=== PATIENT | female | born 1950 | race Caucasian/White ===

== ENCOUNTER 2021-02-22 13:50 | Inpatient (IN) ==
[2021-02-22] MEDS ORDERED: ALUMINUM/MAGNES/SIMETH MAX STR 30 ML UDCUP PO PRN (13:52)
[2021-02-22] MEDS ORDERED: MAGNESIUM SULF RIDER 4 GM/100 ML PREMIX IV PRN (13:52)
[2021-02-22] MEDS ORDERED: PROMETHAZINE 25 MG TABLET PO PRN (13:52)
[2021-02-22] MEDS ORDERED: guaiFENesin/DM ER 600-30 MG TABLET PO PRN (13:52)
[2021-02-22] MEDS ORDERED: hydrALAZINE 20 MG/1 ML VIAL IV PRN (13:52)
[2021-02-22] MEDS ORDERED: DOCUSATE SODIUM 100 MG CAPSULE PO PRN (13:52)
[2021-02-22] MEDS ORDERED: ACETAMINOPHEN 325 MG TABLET PO PRN (13:52)
[2021-02-22] MEDS ORDERED: POTASSIUM CHLORIDE 20 MEQ TABLET PO PRN (13:52)
[2021-02-22] MEDS ORDERED: ALBUTEROL 2.5 MG/3 ML NEB RESP TX PRN (13:52)
[2021-02-22] MEDS ORDERED: diphenhydrAMINE CAP 25 MG CAPSULE PO PRN (13:52)
[2021-02-22] MEDS ORDERED: MAGNESIUM SULF RIDER 2 GM/50 ML PREMIX IV PRN (13:52)
[2021-02-22 15:04] LABS: Basophils % 0.4 % (0.0-0.8); Eosinophils # 0.1 10*3/uL (0.0-0.87); Hematocrit 48.3 VOL% (35.7-47.0); Immature Granulocytes % 0.4 %; Immature Granulocytes Absolute 0.04 #; Lymphocytes # 3.2 10*3/uL (1.4-4.0); Lymphocytes % 34.3 % (21.3-54.2); Mean Corpuscular HGB Conc 33.1 GM/DL (32-36); Mean Corpuscular Volume 93.2 FL (87-102); Mean Platelet Volume 10.4 FL (9.6-12.0); Monocytes % 8.5 % (1.7-12.7); Neutrophils % 55.4 % (38.7-73.9); Platelet Count 228 T/CUMM (130-400); Red Blood Count 5.18 MC/CUMM (3.8-5.5); Red Cell Distribution Width 13.2 % (9.3-17.3); White Blood Count 9.2 T/CUMM (4-12)
[2021-02-22 15:30] LABS: Albumin 3.4 G/DL (3.4-5.0); Bilirubin,Total 0.4 MG/DL (0.2-1.0); Calcium 9.6 MG/DL (8.5-10.1); Osmolality,Calculated 276.8 MOS/KG (273-304); Potassium 2.8 MMOL/L (3.5-5.1); Thyroid Stimulating Hormone 2.35 uIU/ml (0.358-3.74); Total Protein 7.2 G/DL (6.4-8.2); Troponin I 0.035 NG/ML (0.00-0.045)
[2021-02-22] MEDS ORDERED: MAGNESIUM SULF RIDER 2 GM/50 ML PREMIX IV ONE (16:52)
[2021-02-22] MEDS ORDERED: POTASSIUM CHLORIDE 20 MEQ TABLET PO ONE (16:52)
[2021-02-22] MEDS: DILTIAZEM INJ 100 MG in SODIUM CHLORIDE 0.9% 100 ML IV SCH (17:19)
[2021-02-22] MEDS: ENOXAPARIN 100 MG/ML SYRINGE SUBCUT SCH (17:20)
[2021-02-22 18:58] LABS: ABG Base Excess 6.3 MMOL/L (-2.5-2.5); ABG Oxygen Saturation 94.3 % (95-100); ABG PCO2 43.8 MM HG (35-48); ABG PH 7.459 (7.35-7.45); ABG PO2 70.9 MM HG (80-95); ABG TCO2 25.9 MMOL/L (23-27); Pt O2 Delivery Device Room Air
[2021-02-22] MEDS: SPIRONOLACTONE 25 MG TABLET PO SCH (20:25)
[2021-02-22] MEDS: POTASSIUM CHLORIDE 20 MEQ TABLET PO SCH (20:26)
[2021-02-22] MEDS: GABAPENTIN 600 MG TABLET PO SCH (20:26)
[2021-02-22] MEDS ORDERED: POTASSIUM CHLORIDE 10 MEQ TABLET PO SCH (21:00)
[2021-02-22] MEDS: MORPHINE 4 MG/1 ML VIAL IV PRN (21:14)
[2021-02-23] MEDS: ZALEPLON 5 MG CAPSULE PO PRN (00:48)
[2021-02-23 03:41] LABS: Basophils % 0.5 % (0.0-0.8); Eosinophils # 0.2 10*3/uL (0.0-0.87); Hematocrit 45.7 VOL% (35.7-47.0); Hemoglobin 15.2 GM/DL (12.0-16.0); Immature Granulocytes % 0.2 %; Immature Granulocytes Absolute 0.02 #; Lymphocytes # 3.8 10*3/uL (1.4-4.0); Lymphocytes % 44.8 % (21.3-54.2); Mean Corpuscular HGB Conc 33.3 GM/DL (32-36); Mean Corpuscular Volume 94.4 FL (87-102); Mean Platelet Volume 10.4 FL (9.6-12.0); Monocytes % 12.7 % (1.7-12.7); NRBC # 0.02 10*3/uL; Neutrophils % 39.8 % (38.7-73.9); Platelet Count 202 T/CUMM (130-400); Red Blood Count 4.84 MC/CUMM (3.8-5.5); Red Cell Distribution Width 13.3 % (9.3-17.3); White Blood Count 8.5 T/CUMM (4-12)
[2021-02-23 03:51] LABS: Calcium 8.8 MG/DL (8.5-10.1); Osmolality,Calculated 278.7 MOS/KG (273-304); Potassium 3.2 MMOL/L (3.5-5.1); Risk Ratio 6.64; VLDL CHOLESTEROL 93.4 MG/DL
[2021-02-23] MEDS: ENOXAPARIN 100 MG/ML SYRINGE SUBCUT SCH (05:46)
[2021-02-23] MEDS ORDERED: GLUCAGON 1 MG VIAL IM PRN (08:18)
[2021-02-23] MEDS ORDERED: DEXTROSE 50% 25 GM/50 ML VIAL IV PRN (08:18)
[2021-02-23] MEDS ORDERED: POTASSIUM CHLORIDE 20 MEQ TABLET PO ONE (08:21)
[2021-02-23] MEDS ORDERED: PANTOPRAZOLE 40 MG TABLET PO SCH (09:00)
[2021-02-23] MEDS ORDERED: AMINOPHYLLINE 250 MG in SODIUM CHLORIDE 0.9% 100 ML IV ONE (09:30)
[2021-02-23] MEDS: DILTIAZEM CD 240 MG CAPSULE PO SCH (09:30)
[2021-02-23] MEDS: POTASSIUM CHLORIDE 20 MEQ TABLET PO SCH ×2 (09:30→21:46)
[2021-02-23] MEDS: SPIRONOLACTONE 25 MG TABLET PO SCH ×2 (09:30→21:46)
[2021-02-23] MEDS ORDERED: ALBUTEROL/IPRATROPIUM 3 ML NEB RESP TX PRN (09:32)
[2021-02-23] MEDS: MAGNESIUM OXIDE 400 MG TABLET PO SCH ×2 (10:44→21:46)
[2021-02-23] MEDS: MONTELUKAST 10 MG TABLET PO SCH (10:44)
[2021-02-23] MEDS: methylPREDNISolone SOD SUC 40 MG/1 ML VIAL IV SCH ×2 (10:45→17:16)
[2021-02-23] MEDS: cefTRIAXone 1,000 MG in SODIUM CHLORIDE 0.9% 100 ML IV SCH (10:46)
[2021-02-23] MEDS: PANTOPRAZOLE 40 MG TABLET PO SCH ×2 (10:55→21:47)
[2021-02-23] MEDS: DORNASE ALFA 2.5 MG/2.5 ML VIAL RESP TX SCH ×2 (11:11→19:37)
[2021-02-23] MEDS: INSULIN REGULAR 100 UNIT/ML SUBCUT SCH ×3 (12:10→21:45)
[2021-02-23] MEDS: ALBUTEROL/IPRATROPIUM 3 ML NEB RESP TX SCH ×2 (13:40→19:37)
[2021-02-23] MEDS: AMINOPHYLLINE 500 MG in SODIUM CHLORIDE 0.9% 480 ML IV SCH (15:08)
[2021-02-23] MEDS: DILTIAZEM INJ 100 MG in SODIUM CHLORIDE 0.9% 100 ML IV SCH (16:20)
[2021-02-23] MEDS: metFORMIN 500 MG TABLET PO SCH (17:16)
[2021-02-23] MEDS: MORPHINE 4 MG/1 ML VIAL IV PRN (20:18)
[2021-02-23] MEDS: ONDANSETRON 4 MG/2 ML VIAL IV PRN (20:18)
[2021-02-23] MEDS: ROSUVASTATIN 20 MG TABLET PO SCH (21:45)
[2021-02-23] MEDS: GABAPENTIN 600 MG TABLET PO SCH (21:46)
[2021-02-24] MEDS: ZALEPLON 5 MG CAPSULE PO PRN ×2 (00:04→22:01)
[2021-02-24] MEDS: ALBUTEROL/IPRATROPIUM 3 ML NEB RESP TX SCH ×4 (00:33→19:14)
[2021-02-24] MEDS: methylPREDNISolone SOD SUC 40 MG/1 ML VIAL IV SCH ×3 (01:10→16:38)
[2021-02-24] MEDS: MORPHINE 4 MG/1 ML VIAL IV PRN ×2 (01:15→21:22)
[2021-02-24 06:12] LABS: Basophils % 0.1 % (0.0-0.8); Hematocrit 43.5 VOL% (35.7-47.0); Hemoglobin 14.3 GM/DL (12.0-16.0); Immature Granulocytes % 0.6 %; Immature Granulocytes Absolute 0.06 #; Lymphocytes # 1.6 10*3/uL (1.4-4.0); Lymphocytes % 15.2 % (21.3-54.2); Mean Corpuscular HGB Conc 32.9 GM/DL (32-36); Mean Corpuscular Volume 94.4 FL (87-102); Mean Platelet Volume 11.1 FL (9.6-12.0); Monocytes % 3.8 % (1.7-12.7); Neutrophils % 80.3 % (38.7-73.9); Platelet Count 211 T/CUMM (130-400); Red Blood Count 4.61 MC/CUMM (3.8-5.5); Red Cell Distribution Width 13.3 % (9.3-17.3); White Blood Count 10.5 T/CUMM (4-12)
[2021-02-24 06:20] LABS: Calcium 8.6 MG/DL (8.5-10.1); Osmolality,Calculated 282.7 MOS/KG (273-304); Potassium 3.2 MMOL/L (3.5-5.1)
[2021-02-24] MEDS: ENOXAPARIN 40 MG/0.4 ML SYRINGE SUBCUT SCH (06:30)
[2021-02-24] MEDS: DORNASE ALFA 2.5 MG/2.5 ML VIAL RESP TX SCH ×2 (07:58→19:20)
[2021-02-24] MEDS: INSULIN REGULAR 100 UNIT/ML SUBCUT SCH ×4 (08:58→21:21)
[2021-02-24] MEDS: cefTRIAXone 1,000 MG in SODIUM CHLORIDE 0.9% 100 ML IV SCH ×2 (08:59→09:49)
[2021-02-24] MEDS: POTASSIUM CHLORIDE 20 MEQ TABLET PO SCH ×2 (08:59→21:20)
[2021-02-24] MEDS: MONTELUKAST 10 MG TABLET PO SCH (09:00)
[2021-02-24] MEDS: MAGNESIUM OXIDE 400 MG TABLET PO SCH ×2 (09:00→21:19)
[2021-02-24] MEDS: DILTIAZEM CD 240 MG CAPSULE PO SCH (09:00)
[2021-02-24] MEDS: PANTOPRAZOLE 40 MG TABLET PO SCH ×2 (09:01→21:19)
[2021-02-24] MEDS: SPIRONOLACTONE 25 MG TABLET PO SCH ×2 (09:01→21:19)
[2021-02-24] MEDS: METOPROLOL SUCCINATE XL 25 MG TABLET PO SCH (13:04)
[2021-02-24] MEDS: metFORMIN 500 MG TABLET PO SCH (16:39)
[2021-02-24] MEDS: DILTIAZEM INJ 100 MG in SODIUM CHLORIDE 0.9% 100 ML IV SCH (16:54)
[2021-02-24] MEDS: ONDANSETRON 4 MG/2 ML VIAL IV PRN (19:43)
[2021-02-24] MEDS: ROSUVASTATIN 20 MG TABLET PO SCH (21:19)
[2021-02-24] MEDS: GABAPENTIN 600 MG TABLET PO SCH (21:20)
[2021-02-24] MEDS: AMINOPHYLLINE 500 MG in SODIUM CHLORIDE 0.9% 480 ML IV SCH (21:51)
[2021-02-25] MEDS: ALBUTEROL/IPRATROPIUM 3 ML NEB RESP TX SCH ×4 (00:38→20:02)
[2021-02-25] MEDS: methylPREDNISolone SOD SUC 40 MG/1 ML VIAL IV SCH ×3 (02:16→17:17)
[2021-02-25] MEDS: MORPHINE 4 MG/1 ML VIAL IV PRN ×2 (03:16→21:17)
[2021-02-25 05:56] LABS: Basophils % 0.1 % (0.0-0.8); Hematocrit 42.3 VOL% (35.7-47.0); Immature Granulocytes % 0.9 %; Immature Granulocytes Absolute 0.14 #; Lymphocytes # 1.5 10*3/uL (1.4-4.0); Lymphocytes % 9.3 % (21.3-54.2); Mean Corpuscular HGB Conc 33.1 GM/DL (32-36); Mean Corpuscular Volume 95.1 FL (87-102); Mean Platelet Volume 10.8 FL (9.6-12.0); Monocytes % 4.8 % (1.7-12.7); Neutrophils % 84.9 % (38.7-73.9); Platelet Count 220 T/CUMM (130-400); Red Blood Count 4.45 MC/CUMM (3.8-5.5); Red Cell Distribution Width 13.7 % (9.3-17.3); White Blood Count 16.3 T/CUMM (4-12)
[2021-02-25 06:11] LABS: Calcium 8.6 MG/DL (8.5-10.1); Osmolality,Calculated 283.7 MOS/KG (273-304)
[2021-02-25] MEDS: ENOXAPARIN 40 MG/0.4 ML SYRINGE SUBCUT SCH (06:15)
[2021-02-25] MEDS: ONDANSETRON 4 MG/2 ML VIAL IV PRN ×3 (06:15→19:29)
[2021-02-25] MEDS: DORNASE ALFA 2.5 MG/2.5 ML VIAL RESP TX SCH ×2 (07:25→20:09)
[2021-02-25] MEDS: INSULIN REGULAR 100 UNIT/ML SUBCUT SCH ×4 (09:51→22:23)
[2021-02-25] MEDS: MONTELUKAST 10 MG TABLET PO SCH (09:52)
[2021-02-25] MEDS: DILTIAZEM CD 240 MG CAPSULE PO SCH (09:52)
[2021-02-25] MEDS: MAGNESIUM OXIDE 400 MG TABLET PO SCH ×2 (09:52→21:16)
[2021-02-25] MEDS: METOPROLOL SUCCINATE XL 25 MG TABLET PO SCH (09:52)
[2021-02-25] MEDS: SPIRONOLACTONE 25 MG TABLET PO SCH ×2 (09:53→21:16)
[2021-02-25] MEDS: POTASSIUM CHLORIDE 20 MEQ TABLET PO SCH ×2 (09:53→21:16)
[2021-02-25] MEDS: PANTOPRAZOLE 40 MG TABLET PO SCH ×2 (09:53→21:16)
[2021-02-25] MEDS: cefTRIAXone 1,000 MG in SODIUM CHLORIDE 0.9% 100 ML IV SCH (09:55)
[2021-02-25] MEDS: AMINOPHYLLINE 500 MG in SODIUM CHLORIDE 0.9% 480 ML IV SCH (14:22)
[2021-02-25] MEDS: metFORMIN 500 MG TABLET PO SCH (17:15)
[2021-02-25] MEDS: ROSUVASTATIN 20 MG TABLET PO SCH (21:15)
[2021-02-25] MEDS: GABAPENTIN 600 MG TABLET PO SCH (21:16)
[2021-02-26] MEDS: methylPREDNISolone SOD SUC 40 MG/1 ML VIAL IV SCH ×3 (00:57→20:02)
[2021-02-26] MEDS: ALBUTEROL/IPRATROPIUM 3 ML NEB RESP TX SCH ×4 (02:08→19:30)
[2021-02-26] MEDS: MORPHINE 4 MG/1 ML VIAL IV PRN ×3 (02:18→20:02)
[2021-02-26 05:56] LABS: Basophils % 0.2 % (0.0-0.8); Hematocrit 41.2 VOL% (35.7-47.0); Hemoglobin 13.1 GM/DL (12.0-16.0); Immature Granulocytes % 1.9 %; Immature Granulocytes Absolute 0.23 #; Lymphocytes # 1.2 10*3/uL (1.4-4.0); Lymphocytes % 9.8 % (21.3-54.2); Mean Corpuscular HGB Conc 31.8 GM/DL (32-36); Mean Corpuscular Volume 96.5 FL (87-102); Mean Platelet Volume 10.8 FL (9.6-12.0); Monocytes % 6.2 % (1.7-12.7); Neutrophils % 81.9 % (38.7-73.9); Platelet Count 192 T/CUMM (130-400); Red Blood Count 4.27 MC/CUMM (3.8-5.5); Red Cell Distribution Width 13.8 % (9.3-17.3); White Blood Count 12.3 T/CUMM (4-12)
[2021-02-26 06:15] LABS: Osmolality,Calculated 284.7 MOS/KG (273-304); Potassium 4.5 MMOL/L (3.5-5.1)
[2021-02-26] MEDS ORDERED: FUROSEMIDE 40 MG/4 ML VIAL IV ONE ×2 (06:15→16:51)
[2021-02-26] MEDS ORDERED: diphenhydrAMINE CAP 50 MG CAPSULE PO ONE (06:47)
[2021-02-26] MEDS ORDERED: DIAZEPAM 5 MG TABLET PO ONE (06:47)
[2021-02-26] MEDS: DORNASE ALFA 2.5 MG/2.5 ML VIAL RESP TX SCH ×2 (07:47→19:40)
[2021-02-26] MEDS: ONDANSETRON 4 MG/2 ML VIAL IV PRN ×2 (08:23→21:02)
[2021-02-26] MEDS: MAGNESIUM OXIDE 400 MG TABLET PO SCH ×3 (09:43→21:01)
[2021-02-26] MEDS: POTASSIUM CHLORIDE 20 MEQ TABLET PO SCH ×3 (09:43→21:01)
[2021-02-26] MEDS: SPIRONOLACTONE 25 MG TABLET PO SCH ×2 (09:43→21:01)
[2021-02-26] MEDS: METOPROLOL SUCCINATE XL 25 MG TABLET PO SCH (09:43)
[2021-02-26] MEDS: PANTOPRAZOLE 40 MG TABLET PO SCH ×3 (09:43→21:02)
[2021-02-26] MEDS: MONTELUKAST 10 MG TABLET PO SCH ×2 (09:43→10:03)
[2021-02-26] MEDS: DILTIAZEM CD 240 MG CAPSULE PO SCH (09:43)
[2021-02-26] MEDS: INSULIN REGULAR 100 UNIT/ML SUBCUT SCH ×4 (09:44→22:45)
[2021-02-26] MEDS: cefTRIAXone 1,000 MG in SODIUM CHLORIDE 0.9% 100 ML IV SCH (10:51)
[2021-02-26] MEDS ORDERED: DIAZEPAM 5 MG TABLET ONE (15:10)
[2021-02-26] MEDS ORDERED: HEPARIN/NACL 0.9% 2 UNITS/ML 2,000 UNIT/1,000 ML BAG IV ONE (15:57)
[2021-02-26] MEDS ORDERED: LIDOCAINE 1% 20 ML VIAL ONE (15:57)
[2021-02-26] MEDS ORDERED: MIDAZOLAM 2 MG/2 ML VIAL ONE (16:14)
[2021-02-26] MEDS ORDERED: fentaNYL 100 MCG/2 ML VIAL ONE (16:14)
[2021-02-26] MEDS ORDERED: diphenhydrAMINE 50 MG/1 ML VIAL ONE (16:22)
[2021-02-26] MEDS ORDERED: NITROGLYCERIN DRIP 50 MG/250 ML BOTTLE IV ONE (16:33)
[2021-02-26] MEDS ORDERED: DEXTROSE 50% 25 GM/50 ML VIAL IV PRN (16:48)
[2021-02-26] MEDS ORDERED: GLUCAGON 1 MG VIAL IM PRN (16:48)
[2021-02-26] MEDS: GABAPENTIN 600 MG TABLET PO SCH (21:01)
[2021-02-26] MEDS: ROSUVASTATIN 20 MG TABLET PO SCH (21:01)
[2021-02-27] MEDS: methylPREDNISolone SOD SUC 40 MG/1 ML VIAL IV SCH ×4 (01:22→21:57)
[2021-02-27] MEDS: ALBUTEROL/IPRATROPIUM 3 ML NEB RESP TX SCH ×4 (01:43→19:20)
[2021-02-27] MEDS: ZALEPLON 5 MG CAPSULE PO PRN (02:19)
[2021-02-27] MEDS: ONDANSETRON 4 MG/2 ML VIAL IV PRN ×4 (02:20→21:54)
[2021-02-27 06:07] LABS: Basophils % 0.2 % (0.0-0.8); Hematocrit 41.3 VOL% (35.7-47.0); Hemoglobin 13.9 GM/DL (12.0-16.0); Immature Granulocytes % 1.8 %; Immature Granulocytes Absolute 0.19 #; Lymphocytes # 0.9 10*3/uL (1.4-4.0); Lymphocytes % 8.5 % (21.3-54.2); Mean Corpuscular HGB Conc 33.7 GM/DL (32-36); Mean Corpuscular Volume 93.4 FL (87-102); Mean Platelet Volume 11.2 FL (9.6-12.0); Monocytes % 7.2 % (1.7-12.7); NRBC # 0.02 10*3/uL; Neutrophils % 82.3 % (38.7-73.9); Platelet Count 199 T/CUMM (130-400); Red Blood Count 4.42 MC/CUMM (3.8-5.5); Red Cell Distribution Width 13.7 % (9.3-17.3); White Blood Count 10.8 T/CUMM (4-12)
[2021-02-27 06:44] LABS: Calcium 8.1 MG/DL (8.5-10.1)
[2021-02-27] MEDS: DORNASE ALFA 2.5 MG/2.5 ML VIAL RESP TX SCH ×2 (07:10→19:20)
[2021-02-27] MEDS: MONTELUKAST 10 MG TABLET PO SCH (08:41)
[2021-02-27] MEDS: SPIRONOLACTONE 25 MG TABLET PO SCH ×2 (08:41→21:54)
[2021-02-27] MEDS: POTASSIUM CHLORIDE 20 MEQ TABLET PO SCH ×2 (08:41→21:53)
[2021-02-27] MEDS: DILTIAZEM CD 240 MG CAPSULE PO SCH (08:41)
[2021-02-27] MEDS: PANTOPRAZOLE 40 MG TABLET PO SCH ×2 (08:41→21:54)
[2021-02-27] MEDS: MAGNESIUM OXIDE 400 MG TABLET PO SCH ×2 (08:41→21:53)
[2021-02-27] MEDS: METOPROLOL SUCCINATE XL 25 MG TABLET PO SCH (08:41)
[2021-02-27] MEDS: INSULIN REGULAR 100 UNIT/ML SUBCUT SCH ×4 (08:42→22:34)
[2021-02-27] MEDS: FUROSEMIDE 40 MG/4 ML VIAL IV SCH ×2 (08:43→17:41)
[2021-02-27] MEDS: MORPHINE 4 MG/1 ML VIAL IV PRN (08:51)
[2021-02-27] MEDS: THEOPHYLLINE ER (24 HR) 200 MG CAPSULE PO SCH (11:23)
[2021-02-27] MEDS: cefTRIAXone 1,000 MG in SODIUM CHLORIDE 0.9% 100 ML IV SCH (11:24)
[2021-02-27] MEDS: AMINOPHYLLINE 500 MG in SODIUM CHLORIDE 0.9% 480 ML IV SCH (13:09)
[2021-02-27] MEDS ORDERED: METOPROLOL SUCCINATE XL 25 MG TABLET PO SCH (14:01)
[2021-02-27] MEDS: ROSUVASTATIN 20 MG TABLET PO SCH (21:53)
[2021-02-27] MEDS: GABAPENTIN 600 MG TABLET PO SCH (21:54)
[2021-02-27] MEDS: SACUBITRIL/VALSARTAN 49-51 MG TABLET PO SCH (22:33)
[2021-02-28] MEDS: ALBUTEROL/IPRATROPIUM 3 ML NEB RESP TX SCH ×4 (01:03→19:09)
[2021-02-28] MEDS: ZALEPLON 5 MG CAPSULE PO PRN (01:56)
[2021-02-28 05:24] LABS: Basophils % 0.2 % (0.0-0.8); Hematocrit 44.6 VOL% (35.7-47.0); Immature Granulocytes Absolute 0.26 #; Lymphocytes # 1.2 10*3/uL (1.4-4.0); Lymphocytes % 8.7 % (21.3-54.2); Mean Corpuscular HGB Conc 33.6 GM/DL (32-36); Mean Corpuscular Volume 94.5 FL (87-102); Mean Platelet Volume 10.9 FL (9.6-12.0); Monocytes % 7.7 % (1.7-12.7); NRBC # 0.06 10*3/uL; Neutrophils % 81.4 % (38.7-73.9); Platelet Count 224 T/CUMM (130-400); Red Blood Count 4.72 MC/CUMM (3.8-5.5); Red Cell Distribution Width 13.9 % (9.3-17.3); White Blood Count 13.3 T/CUMM (4-12)
[2021-02-28 05:50] LABS: Calcium 8.2 MG/DL (8.5-10.1); Osmolality,Calculated 284.8 MOS/KG (273-304); Potassium 4.5 MMOL/L (3.5-5.1)
[2021-02-28] MEDS: DORNASE ALFA 2.5 MG/2.5 ML VIAL RESP TX SCH ×2 (07:23→19:09)
[2021-02-28] MEDS ORDERED: MAGNESIUM HYDROXIDE SUSP 30 ML UDCUP PO ONE (08:37)
[2021-02-28] MEDS: PANTOPRAZOLE 40 MG TABLET PO SCH ×2 (09:10→21:40)
[2021-02-28] MEDS: SPIRONOLACTONE 25 MG TABLET PO SCH ×2 (09:10→21:40)
[2021-02-28] MEDS: SACUBITRIL/VALSARTAN 49-51 MG TABLET PO SCH ×2 (09:10→21:40)
[2021-02-28] MEDS: MONTELUKAST 10 MG TABLET PO SCH (09:10)
[2021-02-28] MEDS: THEOPHYLLINE ER (24 HR) 200 MG CAPSULE PO SCH (09:10)
[2021-02-28] MEDS: POTASSIUM CHLORIDE 20 MEQ TABLET PO SCH ×2 (09:11→21:39)
[2021-02-28] MEDS: methylPREDNISolone SOD SUC 40 MG/1 ML VIAL IV SCH (09:12)
[2021-02-28] MEDS: INSULIN REGULAR 100 UNIT/ML SUBCUT SCH ×4 (09:12→21:42)
[2021-02-28] MEDS: cefTRIAXone 1,000 MG in SODIUM CHLORIDE 0.9% 100 ML IV SCH (09:12)
[2021-02-28] MEDS: FUROSEMIDE 40 MG/4 ML VIAL IV SCH ×2 (09:13→16:56)
[2021-02-28] MEDS: METOPROLOL SUCCINATE XL 50 MG TABLET PO SCH (09:20)
[2021-02-28] MEDS: MAGNESIUM OXIDE 400 MG TABLET PO SCH ×2 (10:01→21:40)
[2021-02-28] MEDS: ENOXAPARIN 40 MG/0.4 ML SYRINGE SUBCUT SCH (11:27)
[2021-02-28] MEDS: LEVOFLOXACIN 500 MG TABLET PO SCH (11:27)
[2021-02-28] MEDS: ROSUVASTATIN 20 MG TABLET PO SCH (21:38)
[2021-02-28] MEDS: GABAPENTIN 600 MG TABLET PO SCH (21:39)
[2021-03-01] MEDS: ALBUTEROL/IPRATROPIUM 3 ML NEB RESP TX SCH ×4 (00:24→19:45)
[2021-03-01] MEDS: ONDANSETRON 4 MG/2 ML VIAL IV PRN ×3 (00:42→20:45)
[2021-03-01 05:39] LABS: Calcium 8.6 MG/DL (8.5-10.1); Osmolality,Calculated 281.8 MOS/KG (273-304); Potassium 4.5 MMOL/L (3.5-5.1)
[2021-03-01] MEDS: DORNASE ALFA 2.5 MG/2.5 ML VIAL RESP TX SCH ×2 (07:41→19:53)
[2021-03-01] MEDS: LEVOFLOXACIN 500 MG TABLET PO SCH (08:03)
[2021-03-01] MEDS: THEOPHYLLINE ER (24 HR) 200 MG CAPSULE PO SCH (08:03)
[2021-03-01] MEDS: SACUBITRIL/VALSARTAN 49-51 MG TABLET PO SCH ×2 (08:03→22:16)
[2021-03-01] MEDS: METOPROLOL SUCCINATE XL 50 MG TABLET PO SCH (08:03)
[2021-03-01] MEDS: predniSONE 10 MG TABLET PO SCH (08:03)
[2021-03-01] MEDS: FUROSEMIDE 40 MG/4 ML VIAL IV SCH ×2 (08:04→16:34)
[2021-03-01] MEDS: POTASSIUM CHLORIDE 20 MEQ TABLET PO SCH ×2 (08:04→22:14)
[2021-03-01] MEDS: MAGNESIUM OXIDE 400 MG TABLET PO SCH ×2 (08:04→22:15)
[2021-03-01] MEDS: MONTELUKAST 10 MG TABLET PO SCH (08:04)
[2021-03-01] MEDS: SPIRONOLACTONE 25 MG TABLET PO SCH ×2 (08:04→22:16)
[2021-03-01] MEDS: PANTOPRAZOLE 40 MG TABLET PO SCH ×2 (08:04→22:15)
[2021-03-01] MEDS: INSULIN REGULAR 100 UNIT/ML SUBCUT SCH ×4 (08:13→22:13)
[2021-03-01] MEDS: ENOXAPARIN 40 MG/0.4 ML SYRINGE SUBCUT SCH (10:53)
[2021-03-01] MEDS: ROSUVASTATIN 20 MG TABLET PO SCH (22:15)
[2021-03-01] MEDS: GABAPENTIN 600 MG TABLET PO SCH (22:15)
[2021-03-02] MEDS: ALBUTEROL/IPRATROPIUM 3 ML NEB RESP TX SCH ×4 (00:27→19:28)
[2021-03-02] MEDS: ONDANSETRON 4 MG/2 ML VIAL IV PRN ×4 (01:18→21:37)
[2021-03-02 05:39] LABS: Calcium 9.1 MG/DL (8.5-10.1); Potassium 4.9 MMOL/L (3.5-5.1)
[2021-03-02 06:43] LABS: ABG Oxygen Saturation 95.5 % (95-100); ABG PCO2 40.3 MM HG (35-48); ABG TCO2 22.4 MMOL/L (23-27)
[2021-03-02 06:52] LABS: Basophils % 0.1 % (0.0-0.8); Eosinophils # 0.1 10*3/uL (0.0-0.87); Eosinophils % 0.6 % (0.00-10.9); Hematocrit 52.5 VOL% (35.7-47.0); Hemoglobin 16.7 GM/DL (12.0-16.0); Immature Granulocytes % 1.4 %; Lymphocytes # 3.5 10*3/uL (1.4-4.0); Lymphocytes % 25.3 % (21.3-54.2); Mean Corpuscular HGB Conc 31.8 GM/DL (32-36); Mean Corpuscular Volume 95.5 FL (87-102); Mean Platelet Volume 10.4 FL (9.6-12.0); Monocytes % 8.1 % (1.7-12.7); NRBC # 0.02 10*3/uL; Neutrophils % 64.5 % (38.7-73.9); Platelet Count 232 T/CUMM (130-400); Red Cell Distribution Width 14.1 % (9.3-17.3); White Blood Count 13.9 T/CUMM (4-12)
[2021-03-02] MEDS: DORNASE ALFA 2.5 MG/2.5 ML VIAL RESP TX SCH ×2 (07:17→19:28)
[2021-03-02] MEDS: INSULIN REGULAR 100 UNIT/ML SUBCUT SCH ×4 (08:23→21:47)
[2021-03-02] MEDS: PANTOPRAZOLE 40 MG TABLET PO SCH ×2 (08:41→21:37)
[2021-03-02] MEDS: MONTELUKAST 10 MG TABLET PO SCH (08:41)
[2021-03-02] MEDS: predniSONE 10 MG TABLET PO SCH (08:41)
[2021-03-02] MEDS: SACUBITRIL/VALSARTAN 49-51 MG TABLET PO SCH ×2 (08:41→21:36)
[2021-03-02] MEDS: SPIRONOLACTONE 25 MG TABLET PO SCH ×2 (08:41→21:37)
[2021-03-02] MEDS: THEOPHYLLINE ER (24 HR) 200 MG CAPSULE PO SCH (08:41)
[2021-03-02] MEDS: METOPROLOL SUCCINATE XL 50 MG TABLET PO SCH (08:41)
[2021-03-02] MEDS: POTASSIUM CHLORIDE 20 MEQ TABLET PO SCH ×2 (08:41→21:36)
[2021-03-02] MEDS: FUROSEMIDE 40 MG TABLET PO SCH ×2 (08:42→15:30)
[2021-03-02] MEDS: LEVOFLOXACIN 500 MG TABLET PO SCH (08:42)
[2021-03-02] MEDS: MAGNESIUM OXIDE 400 MG TABLET PO SCH ×2 (08:44→21:36)
[2021-03-02] MEDS: ENOXAPARIN 40 MG/0.4 ML SYRINGE SUBCUT SCH (10:01)
[2021-03-02] MEDS: ROSUVASTATIN 20 MG TABLET PO SCH (21:36)
[2021-03-02] MEDS: GABAPENTIN 600 MG TABLET PO SCH (21:37)
[2021-03-03] MEDS: ALBUTEROL/IPRATROPIUM 3 ML NEB RESP TX SCH ×2 (00:10→07:30)
[2021-03-03] MEDS: ZALEPLON 5 MG CAPSULE PO PRN (00:49)
[2021-03-03 05:39] LABS: Basophils # 0.1 10*3/uL (0.0-0.2); Basophils % 0.4 % (0.0-0.8); Eosinophils # 0.1 10*3/uL (0.0-0.87); Eosinophils % 0.6 % (0.00-10.9); Hemoglobin 16.9 GM/DL (12.0-16.0); Immature Granulocytes % 1.2 %; Immature Granulocytes Absolute 0.15 #; Lymphocytes # 3.1 10*3/uL (1.4-4.0); Lymphocytes % 24.5 % (21.3-54.2); Mean Corpuscular HGB Conc 32.5 GM/DL (32-36); Mean Corpuscular Volume 95.8 FL (87-102); Mean Platelet Volume 10.7 FL (9.6-12.0); Monocytes % 8.6 % (1.7-12.7); Neutrophils % 64.7 % (38.7-73.9); Platelet Count 223 T/CUMM (130-400); Red Blood Count 5.43 MC/CUMM (3.8-5.5); White Blood Count 12.5 T/CUMM (4-12)
[2021-03-03 05:58] LABS: Osmolality,Calculated 270.5 MOS/KG (273-304); Potassium 4.9 MMOL/L (3.5-5.1)
[2021-03-03] MEDS: DORNASE ALFA 2.5 MG/2.5 ML VIAL RESP TX SCH (07:30)
[2021-03-03 07:33] VITALS: BP 131/75
[2021-03-03] MEDS: INSULIN REGULAR 100 UNIT/ML SUBCUT SCH (08:04)
[2021-03-03] MEDS: predniSONE 10 MG TABLET PO SCH (08:47)
[2021-03-03] MEDS: SPIRONOLACTONE 25 MG TABLET PO SCH (08:47)
[2021-03-03] MEDS: PANTOPRAZOLE 40 MG TABLET PO SCH (08:48)
[2021-03-03] MEDS: METOPROLOL SUCCINATE XL 50 MG TABLET PO SCH (08:48)
[2021-03-03] MEDS: MONTELUKAST 10 MG TABLET PO SCH (08:48)
[2021-03-03] MEDS: SACUBITRIL/VALSARTAN 49-51 MG TABLET PO SCH (08:48)
[2021-03-03] MEDS: FUROSEMIDE 40 MG TABLET PO SCH (08:48)
[2021-03-03] MEDS: POTASSIUM CHLORIDE 20 MEQ TABLET PO SCH (08:48)
[2021-03-03] MEDS: LEVOFLOXACIN 500 MG TABLET PO SCH (08:49)
[2021-03-03] MEDS: THEOPHYLLINE ER (24 HR) 200 MG CAPSULE PO SCH (08:49)
[2021-03-03] MEDS: ONDANSETRON 4 MG/2 ML VIAL IV PRN (08:50)
[2021-03-03] MEDS: MAGNESIUM OXIDE 400 MG TABLET PO SCH (08:54)
[2021-03-03] MEDS: ENOXAPARIN 40 MG/0.4 ML SYRINGE SUBCUT SCH (10:26)
== END 2021-03-03 11:18 | disposition home or self-care (01) | DRG 190 ==
LOC: N.TELES 14:14
PROVIDERS: ADMIT Internal Medicine Cardiovascular Disease; ATTEND Internal Medicine Cardiovascular Disease

== ENCOUNTER 2021-03-08 08:01 | Inpatient (IN) ==
[2021-03-08] MEDS ORDERED: SODIUM CHLORIDE 0.9% 250 ML IV STA ×2 (08:35→09:22)
[2021-03-08 08:39] LABS: Basophils % 0.1 % (0.0-0.8); Eosinophils % 0.1 % (0.00-10.9); Hematocrit 45.2 VOL% (35.7-47.0); Hemoglobin 15.3 GM/DL (12.0-16.0); Immature Granulocytes % 0.6 %; Immature Granulocytes Absolute 0.09 #; Lymphocytes # 3.7 10*3/uL (1.4-4.0); Lymphocytes % 24.4 % (21.3-54.2); Mean Corpuscular HGB Conc 33.8 GM/DL (32-36); Mean Corpuscular Volume 91.1 FL (87-102); Monocytes % 10.8 % (1.7-12.7); Platelet Count 231 T/CUMM (130-400); Red Blood Count 4.96 MC/CUMM (3.8-5.5); White Blood Count 15.3 T/CUMM (4-12)
[2021-03-08 08:49] LABS: INR 0.9; PT Patient Result 10.5 SECS (10.5-12.0); Partial Thromboplastin Time < 20.0 SECS (23.9-33.8)
[2021-03-08 08:59] LABS: Alanine Aminotransferase 68 U/L (13-56); Albumin 2.7 G/DL (3.4-5.0); Alkaline Phosphatase 114 U/L (45-117); Aspartate Amino Transferase 36 U/L (0-37); Bilirubin,Total < 0.39 MG/DL (0.2-1.0); Blood Urea Nitrogen 75 MG/DL (7-18); Carbon Dioxide 26 MMOL/L (21-32); Estimated Glom Filtration Rate 15 ML/MIN; Glucose 132 MG/DL (74-106); Osmolality,Calculated 291.2 MOS/KG (273-304); Potassium 3.8 MMOL/L (3.5-5.1); Sodium 134 MMOL/L (136-145); Total Protein 6.6 G/DL (6.4-8.2)
[2021-03-08] MEDS ORDERED: GLUCAGON 1 MG VIAL IM PRN (10:21)
[2021-03-08] MEDS ORDERED: DEXTROSE 50% 25 GM/50 ML VIAL IV PRN (10:21)
[2021-03-08] MEDS: SODIUM CHLORIDE 0.9% 1,000 ML IV SCH (10:35)
[2021-03-08 11:25] LABS: Amorphous Crystals,Urine Few /HPF (Few); Bilirubin,Urine Negative (Negative); Blood, Urine Small mg/dL (Negative); Glucose,Urine (UA) Negative (Negative); Hyaline Casts,Urine 4 /LPF (0-3); Ketones,Urine Negative (Negative); Mucus,Urine Occasional /LPF (Occasional); Nitrite,Urine Negative (Negative); Protein,Urine 30 MG/DL; RBC,Urine 3 /HPF (0-4); Squamous Epithelial Cell,Urine Occasional /HPF (0-10); Urine Appearance Slightly Hazy (Clear); Urine Color Yellow (Yellow); Urine Specific Gravity 1.012 (1.001-1.035); Urine Urobilinogen < 2.0 EU/DL (0.2-1.0)
[2021-03-08] MEDS ORDERED: ALBUTEROL/IPRATROPIUM 3 ML NEB RESP TX ONE (11:51)
[2021-03-08] MEDS: ALBUTEROL/IPRATROPIUM 3 ML NEB RESP TX SCH ×2 (11:55→18:02)
[2021-03-08] MEDS: ENOXAPARIN 30 MG/0.3 ML SYRINGE SUBCUT SCH (13:06)
[2021-03-08] MEDS: INSULIN LISPRO 100 UNIT/ML SUBCUT SCH ×3 (13:53→21:00)
[2021-03-08] MEDS ORDERED: SODIUM CHLORIDE 0.9% 500 ML IV ONE ×2 (17:24→23:08)
[2021-03-08] MEDS: ROSUVASTATIN 20 MG TABLET PO SCH (20:58)
[2021-03-08] MEDS: ACETAMINOPHEN 325 MG TABLET PO PRN (20:59)
[2021-03-08] MEDS: FAMOTIDINE 20 MG TABLET PO SCH (20:59)
[2021-03-09] MEDS: ALBUTEROL/IPRATROPIUM 3 ML NEB RESP TX SCH ×4 (00:42→20:07)
[2021-03-09] MEDS: SODIUM CHLORIDE 0.9% 1,000 ML IV SCH ×2 (04:48→13:12)
[2021-03-09] MEDS: ACETAMINOPHEN 325 MG TABLET PO PRN (05:39)
[2021-03-09] MEDS: ONDANSETRON 4 MG/2 ML VIAL IV PRN ×2 (05:39→23:18)
[2021-03-09 05:58] LABS: Basophils % 0.1 % (0.0-0.8); Eosinophils # 0.1 10*3/uL (0.0-0.87); Eosinophils % 0.9 % (0.00-10.9); Hematocrit 47.7 VOL% (35.7-47.0); Hemoglobin 15.6 GM/DL (12.0-16.0); Immature Granulocytes % 0.6 %; Immature Granulocytes Absolute 0.06 #; Lymphocytes # 3.3 10*3/uL (1.4-4.0); Lymphocytes % 35.2 % (21.3-54.2); Mean Corpuscular HGB Conc 32.7 GM/DL (32-36); Mean Corpuscular Volume 93.7 FL (87-102); Monocytes % 11.9 % (1.7-12.7); Neutrophils % 51.3 % (38.7-73.9); Platelet Count 190 T/CUMM (130-400); Red Blood Count 5.09 MC/CUMM (3.8-5.5); Red Cell Distribution Width 14.1 % (9.3-17.3); White Blood Count 9.4 T/CUMM (4-12)
[2021-03-09 06:13] LABS: Calcium 9.3 MG/DL (8.5-10.1); Osmolality,Calculated 294.3 MOS/KG (273-304); Potassium 3.8 MMOL/L (3.5-5.1)
[2021-03-09] MEDS ORDERED: METOPROLOL SUCCINATE XL 50 MG TABLET PO ONE (07:00)
[2021-03-09] MEDS: INSULIN LISPRO 100 UNIT/ML SUBCUT SCH ×4 (08:38→21:20)
[2021-03-09] MEDS ORDERED: METOPROLOL SUCCINATE XL 50 MG TABLET PO SCH (09:00)
[2021-03-09] MEDS ORDERED: SODIUM CHLORIDE 0.9% 500 ML IV ONE (09:08)
[2021-03-09] MEDS ORDERED: METOPROLOL TARTRATE 5 MG/5 ML VIAL IV ONE (09:09)
[2021-03-09] MEDS: ENOXAPARIN 30 MG/0.3 ML SYRINGE SUBCUT SCH (09:42)
[2021-03-09] MEDS: ASPIRIN 325 MG TABLET PO SCH (09:42)
[2021-03-09] MEDS: THEOPHYLLINE ER (24 HR) 400 MG TABLET PO SCH (09:43)
[2021-03-09] MEDS: FAMOTIDINE 20 MG TABLET PO SCH ×2 (09:43→21:20)
[2021-03-09] MEDS: MONTELUKAST 10 MG TABLET PO SCH (09:43)
[2021-03-09] MEDS ORDERED: traMADol 50 MG TABLET PO PRN (10:45)
[2021-03-09] MEDS: PANTOPRAZOLE 40 MG TABLET PO SCH ×2 (11:25→21:21)
[2021-03-09] MEDS: oxyCODONE/ACETAMINOPHEN 5-325 MG TABLET PO PRN ×2 (11:27→23:17)
[2021-03-09] MEDS ORDERED: DIGOXIN 0.5 MG/2 ML AMP IV ONE (17:07)
[2021-03-09] MEDS: ENOXAPARIN 100 MG/ML SYRINGE SUBCUT SCH (17:26)
[2021-03-09] MEDS: DILTIAZEM INJ 100 MG in SODIUM CHLORIDE 0.9% 100 ML IV SCH (17:51)
[2021-03-09] MEDS: GABAPENTIN 600 MG TABLET PO SCH (21:21)
[2021-03-09] MEDS: ROSUVASTATIN 20 MG TABLET PO SCH (21:21)
[2021-03-10] MEDS: ALBUTEROL/IPRATROPIUM 3 ML NEB RESP TX SCH ×4 (01:56→19:34)
[2021-03-10 06:21] LABS: Osmolality,Calculated 289.4 MOS/KG (273-304); Potassium 2.9 MMOL/L (3.5-5.1)
[2021-03-10] MEDS: SODIUM CHLORIDE 0.9% 1,000 ML IV SCH (07:36)
[2021-03-10] MEDS ORDERED: POTASSIUM CHLORIDE 20 MEQ TABLET PO ONE ×2 (08:01→13:00)
[2021-03-10] MEDS: INSULIN LISPRO 100 UNIT/ML SUBCUT SCH ×4 (08:13→20:36)
[2021-03-10] MEDS: THEOPHYLLINE ER (24 HR) 400 MG TABLET PO SCH (08:59)
[2021-03-10] MEDS: ASPIRIN 325 MG TABLET PO SCH (08:59)
[2021-03-10] MEDS: MONTELUKAST 10 MG TABLET PO SCH (08:59)
[2021-03-10] MEDS: FAMOTIDINE 20 MG TABLET PO SCH ×2 (08:59→20:34)
[2021-03-10] MEDS: PANTOPRAZOLE 40 MG TABLET PO SCH ×2 (08:59→20:35)
[2021-03-10] MEDS ORDERED: DIGOXIN 0.5 MG/2 ML AMP IV ONE (09:16)
[2021-03-10] MEDS: oxyCODONE/ACETAMINOPHEN 5-325 MG TABLET PO PRN ×2 (10:27→20:35)
[2021-03-10] MEDS: POTASSIUM CHLORIDE INJ 10 MEQ in LACTATED RINGERS 1,000 ML IV SCH ×2 (11:05→22:41)
[2021-03-10] MEDS: ENOXAPARIN 100 MG/ML SYRINGE SUBCUT SCH (16:44)
[2021-03-10] MEDS: DILTIAZEM INJ 100 MG in SODIUM CHLORIDE 0.9% 100 ML IV SCH ×2 (17:36→22:38)
[2021-03-10] MEDS: ROSUVASTATIN 20 MG TABLET PO SCH (20:34)
[2021-03-10] MEDS: GABAPENTIN 600 MG TABLET PO SCH (20:35)
[2021-03-10] MEDS: ONDANSETRON 4 MG/2 ML VIAL IV PRN (20:36)
[2021-03-11] MEDS: ALBUTEROL/IPRATROPIUM 3 ML NEB RESP TX SCH ×4 (00:21→19:56)
[2021-03-11 05:53] LABS: Calcium 9.7 MG/DL (8.5-10.1); Osmolality,Calculated 284.3 MOS/KG (273-304)
[2021-03-11] MEDS: INSULIN LISPRO 100 UNIT/ML SUBCUT SCH ×4 (07:53→20:51)
[2021-03-11] MEDS ORDERED: MAGNESIUM SULF RIDER 2 GM/50 ML PREMIX IV ONE (08:28)
[2021-03-11] MEDS: FAMOTIDINE 20 MG TABLET PO SCH ×2 (09:01→20:48)
[2021-03-11] MEDS: THEOPHYLLINE ER (24 HR) 400 MG TABLET PO SCH (09:01)
[2021-03-11] MEDS: MAGNESIUM OXIDE 400 MG TABLET PO SCH ×2 (09:01→20:48)
[2021-03-11] MEDS: PANTOPRAZOLE 40 MG TABLET PO SCH ×2 (09:01→20:48)
[2021-03-11] MEDS: ASPIRIN 325 MG TABLET PO SCH (09:01)
[2021-03-11] MEDS: MONTELUKAST 10 MG TABLET PO SCH (09:01)
[2021-03-11] MEDS ORDERED: DIGOXIN 0.5 MG/2 ML AMP IV ONE ×2 (09:23→10:43)
[2021-03-11] MEDS: DILTIAZEM INJ 100 MG in SODIUM CHLORIDE 0.9% 100 ML IV SCH ×2 (11:33→18:03)
[2021-03-11] MEDS: ONDANSETRON 4 MG/2 ML VIAL IV PRN ×2 (14:36→20:56)
[2021-03-11] MEDS: oxyCODONE/ACETAMINOPHEN 5-325 MG TABLET PO PRN ×2 (14:37→20:48)
[2021-03-11] MEDS: GABAPENTIN 600 MG TABLET PO SCH (20:48)
[2021-03-11] MEDS: APIXABAN 5 MG TABLET PO SCH (20:48)
[2021-03-11] MEDS: ROSUVASTATIN 20 MG TABLET PO SCH (20:48)
[2021-03-12] MEDS: DILTIAZEM INJ 100 MG in SODIUM CHLORIDE 0.9% 100 ML IV SCH (01:10)
[2021-03-12] MEDS: ALBUTEROL/IPRATROPIUM 3 ML NEB RESP TX SCH ×4 (01:40→19:34)
[2021-03-12 07:04] LABS: Basophils % 0.2 % (0.0-0.8); Eosinophils # 0.2 10*3/uL (0.0-0.87); Eosinophils % 2.6 % (0.00-10.9); Hematocrit 41.6 VOL% (35.7-47.0); Immature Granulocytes % 0.6 %; Immature Granulocytes Absolute 0.05 #; Lymphocytes # 1.8 10*3/uL (1.4-4.0); Lymphocytes % 21.6 % (21.3-54.2); Mean Corpuscular HGB Conc 31.7 GM/DL (32-36); Mean Platelet Volume 10.2 FL (9.6-12.0); Monocytes % 10.9 % (1.7-12.7); Neutrophils % 64.1 % (38.7-73.9); Red Blood Count 4.29 MC/CUMM (3.8-5.5); Red Cell Distribution Width 14.3 % (9.3-17.3); White Blood Count 8.3 T/CUMM (4-12)
[2021-03-12 07:07] LABS: Hemoglobin 13.2 GM/DL (12.0-16.0); Platelet Count 141 T/CUMM (130-400)
[2021-03-12 07:10] LABS: Calcium 9.4 MG/DL (8.5-10.1); Osmolality,Calculated 284.3 MOS/KG (273-304); Potassium 3.2 MMOL/L (3.5-5.1)
[2021-03-12 07:14] LABS: Hypochromasia Slight; Microcytosis Slight; Platelet Estimate Adequate
[2021-03-12] MEDS: INSULIN LISPRO 100 UNIT/ML SUBCUT SCH ×4 (07:30→20:03)
[2021-03-12] MEDS ORDERED: LIDOCAINE 2% 5 ML VIAL ONE (10:23)
[2021-03-12] MEDS ORDERED: propofoL 200 MG/20 ML VIAL IV ONE (10:23)
[2021-03-12] MEDS ORDERED: ETOMIDATE 40 MG/20 ML VIAL IV ONE (10:23)
[2021-03-12] MEDS: MAGNESIUM OXIDE 400 MG TABLET PO SCH ×2 (10:53→20:20)
[2021-03-12] MEDS: DILTIAZEM CD 120 MG CAPSULE PO SCH (10:53)
[2021-03-12] MEDS: ASPIRIN 325 MG TABLET PO SCH (10:53)
[2021-03-12] MEDS: ASCORBIC ACID 500 MG TABLET PO SCH ×2 (10:53→20:24)
[2021-03-12] MEDS: MONTELUKAST 10 MG TABLET PO SCH (10:54)
[2021-03-12] MEDS: PANTOPRAZOLE 40 MG TABLET PO SCH ×2 (10:54→20:20)
[2021-03-12] MEDS: APIXABAN 5 MG TABLET PO SCH ×2 (10:54→20:20)
[2021-03-12] MEDS: FAMOTIDINE 20 MG TABLET PO SCH ×2 (10:54→20:20)
[2021-03-12] MEDS ORDERED: POTASSIUM CHLORIDE 20 MEQ TABLET PO ONE (11:08)
[2021-03-12] MEDS: DOFETILIDE 250 MCG CAPSULE PO SCH (14:56)
[2021-03-12] MEDS: oxyCODONE/ACETAMINOPHEN 5-325 MG TABLET PO PRN (19:20)
[2021-03-12] MEDS: ONDANSETRON 4 MG/2 ML VIAL IV PRN (19:20)
[2021-03-12] MEDS: ROSUVASTATIN 20 MG TABLET PO SCH (20:20)
[2021-03-12] MEDS: GABAPENTIN 600 MG TABLET PO SCH (20:20)
[2021-03-13] MEDS: ALBUTEROL/IPRATROPIUM 3 ML NEB RESP TX SCH ×4 (00:18→19:50)
[2021-03-13] MEDS: DOFETILIDE 250 MCG CAPSULE PO SCH ×4 (03:13→20:32)
[2021-03-13 04:05] LABS: Basophils % 0.2 % (0.0-0.8); Eosinophils # 0.3 10*3/uL (0.0-0.87); Eosinophils % 3.1 % (0.00-10.9); Hematocrit 41.3 VOL% (35.7-47.0); Hemoglobin 13.2 GM/DL (12.0-16.0); Immature Granulocytes % 0.5 %; Immature Granulocytes Absolute 0.04 #; Lymphocytes # 2.3 10*3/uL (1.4-4.0); Mean Corpuscular Volume 96.5 FL (87-102); Mean Platelet Volume 9.8 FL (9.6-12.0); Monocytes % 11.3 % (1.7-12.7); Neutrophils % 56.9 % (38.7-73.9); Platelet Count 139 T/CUMM (130-400); Red Blood Count 4.28 MC/CUMM (3.8-5.5); Red Cell Distribution Width 14.6 % (9.3-17.3); White Blood Count 8.1 T/CUMM (4-12)
[2021-03-13 04:44] LABS: Calcium 9.3 MG/DL (8.5-10.1); Osmolality,Calculated 285.1 MOS/KG (273-304); Potassium 3.8 MMOL/L (3.5-5.1)
[2021-03-13] MEDS: PANTOPRAZOLE 40 MG TABLET PO SCH ×2 (08:36→20:32)
[2021-03-13] MEDS: MAGNESIUM OXIDE 400 MG TABLET PO SCH ×2 (08:36→20:32)
[2021-03-13] MEDS: ASCORBIC ACID 500 MG TABLET PO SCH ×2 (08:36→20:31)
[2021-03-13] MEDS: DILTIAZEM CD 120 MG CAPSULE PO SCH (08:37)
[2021-03-13] MEDS: MONTELUKAST 10 MG TABLET PO SCH (08:37)
[2021-03-13] MEDS: ASPIRIN 325 MG TABLET PO SCH (08:37)
[2021-03-13] MEDS: FAMOTIDINE 20 MG TABLET PO SCH ×2 (08:37→20:31)
[2021-03-13] MEDS: APIXABAN 5 MG TABLET PO SCH ×2 (08:37→20:32)
[2021-03-13] MEDS: INSULIN LISPRO 100 UNIT/ML SUBCUT SCH ×4 (08:39→20:33)
[2021-03-13] MEDS: ONDANSETRON 4 MG/2 ML VIAL IV PRN ×2 (10:26→20:31)
[2021-03-13] MEDS: oxyCODONE/ACETAMINOPHEN 5-325 MG TABLET PO PRN ×2 (10:27→20:31)
[2021-03-13] MEDS: ROSUVASTATIN 20 MG TABLET PO SCH (20:31)
[2021-03-13] MEDS: GABAPENTIN 600 MG TABLET PO SCH (20:32)
[2021-03-14] MEDS: ALBUTEROL/IPRATROPIUM 3 ML NEB RESP TX SCH ×4 (01:06→19:47)
[2021-03-14 06:39] LABS: Basophils % 0.1 % (0.0-0.8); Eosinophils # 0.3 10*3/uL (0.0-0.87); Eosinophils % 2.6 % (0.00-10.9); Hematocrit 41.4 VOL% (35.7-47.0); Hemoglobin 13.1 GM/DL (12.0-16.0); Immature Granulocytes % 0.5 %; Immature Granulocytes Absolute 0.05 #; Lymphocytes # 1.5 10*3/uL (1.4-4.0); Lymphocytes % 15.8 % (21.3-54.2); Mean Corpuscular HGB Conc 31.6 GM/DL (32-36); Mean Platelet Volume 9.6 FL (9.6-12.0); Monocytes % 10.9 % (1.7-12.7); Neutrophils % 70.1 % (38.7-73.9); Platelet Count 142 T/CUMM (130-400); Red Blood Count 4.27 MC/CUMM (3.8-5.5); Red Cell Distribution Width 14.4 % (9.3-17.3); White Blood Count 9.6 T/CUMM (4-12)
[2021-03-14 07:06] LABS: Osmolality,Calculated 281.4 MOS/KG (273-304); Potassium 3.7 MMOL/L (3.5-5.1)
[2021-03-14] MEDS: oxyCODONE/ACETAMINOPHEN 5-325 MG TABLET PO PRN ×2 (08:15→18:25)
[2021-03-14] MEDS: ONDANSETRON 4 MG/2 ML VIAL IV PRN ×3 (08:15→21:57)
[2021-03-14] MEDS: MONTELUKAST 10 MG TABLET PO SCH (08:15)
[2021-03-14] MEDS: DILTIAZEM CD 120 MG CAPSULE PO SCH (08:16)
[2021-03-14] MEDS: MAGNESIUM OXIDE 400 MG TABLET PO SCH ×2 (08:16→22:02)
[2021-03-14] MEDS: ASCORBIC ACID 500 MG TABLET PO SCH ×2 (08:16→22:02)
[2021-03-14] MEDS: FAMOTIDINE 20 MG TABLET PO SCH (08:16)
[2021-03-14] MEDS: APIXABAN 5 MG TABLET PO SCH ×2 (08:16→22:00)
[2021-03-14] MEDS: ASPIRIN CHEW 81 MG TABLET PO SCH (08:16)
[2021-03-14] MEDS: INSULIN LISPRO 100 UNIT/ML SUBCUT SCH ×4 (08:17→22:03)
[2021-03-14] MEDS: PANTOPRAZOLE 40 MG TABLET PO SCH ×2 (08:17→22:02)
[2021-03-14] MEDS: DOFETILIDE 250 MCG CAPSULE PO SCH ×2 (08:22→22:00)
[2021-03-14] MEDS ORDERED: FUROSEMIDE 40 MG/4 ML VIAL IV ONE (09:06)
[2021-03-14] MEDS: FUROSEMIDE 20 MG TABLET PO SCH (16:31)
[2021-03-14] MEDS: GABAPENTIN 600 MG TABLET PO SCH (22:02)
[2021-03-14] MEDS: ROSUVASTATIN 20 MG TABLET PO SCH (22:02)
[2021-03-15] MEDS: ALBUTEROL/IPRATROPIUM 3 ML NEB RESP TX SCH ×2 (00:21→07:15)
[2021-03-15 06:45] LABS: Basophils % 0.3 % (0.0-0.8); Eosinophils # 0.3 10*3/uL (0.0-0.87); Eosinophils % 2.9 % (0.00-10.9); Hematocrit 40.6 VOL% (35.7-47.0); Hemoglobin 13.3 GM/DL (12.0-16.0); Immature Granulocytes % 0.3 %; Immature Granulocytes Absolute 0.03 #; Lymphocytes % 21.4 % (21.3-54.2); Mean Corpuscular HGB Conc 32.8 GM/DL (32-36); Mean Corpuscular Volume 95.1 FL (87-102); Mean Platelet Volume 9.9 FL (9.6-12.0); Monocytes % 12.6 % (1.7-12.7); Neutrophils % 62.5 % (38.7-73.9); Platelet Count 150 T/CUMM (130-400); Red Blood Count 4.27 MC/CUMM (3.8-5.5); Red Cell Distribution Width 14.3 % (9.3-17.3); White Blood Count 9.4 T/CUMM (4-12)
[2021-03-15 07:14] LABS: Osmolality,Calculated 283.4 MOS/KG (273-304); Potassium 3.3 MMOL/L (3.5-5.1)
[2021-03-15] MEDS ORDERED: POTASSIUM CHLORIDE 20 MEQ TABLET PO ONE (07:42)
[2021-03-15] MEDS: INSULIN LISPRO 100 UNIT/ML SUBCUT SCH (08:03)
[2021-03-15] MEDS: ASCORBIC ACID 500 MG TABLET PO SCH (08:19)
[2021-03-15] MEDS: APIXABAN 5 MG TABLET PO SCH (08:19)
[2021-03-15] MEDS: PANTOPRAZOLE 40 MG TABLET PO SCH (08:19)
[2021-03-15] MEDS: FUROSEMIDE 20 MG TABLET PO SCH (08:20)
[2021-03-15] MEDS: MONTELUKAST 10 MG TABLET PO SCH (08:20)
[2021-03-15] MEDS: MAGNESIUM OXIDE 400 MG TABLET PO SCH (08:20)
[2021-03-15] MEDS: ASPIRIN CHEW 81 MG TABLET PO SCH (08:20)
[2021-03-15] MEDS: oxyCODONE/ACETAMINOPHEN 5-325 MG TABLET PO PRN (08:21)
[2021-03-15] MEDS: DILTIAZEM CD 120 MG CAPSULE PO SCH (08:21)
[2021-03-15] MEDS: DOFETILIDE 250 MCG CAPSULE PO SCH (08:21)
[2021-03-15] MEDS: ONDANSETRON 4 MG/2 ML VIAL IV PRN (08:22)
[2021-03-15 08:24] VITALS: BP 116/65
== END 2021-03-15 11:00 | disposition home or self-care (01) | DRG 309 ==
LOC: N.ED 08:01 → SUATTDRO 10:21 → N.EDINP 10:21 → N.TELEN 13:26
PROVIDERS: ADMIT Internal Medicine; ATTEND Internal Medicine Geriatric Medicine

== ENCOUNTER 2021-05-07 14:43 | Inpatient (IN) ==
[2021-05-07] MEDS ORDERED: SODIUM CHLORIDE 0.9% 1,000 ML IV STA (15:12)
[2021-05-07] MEDS ORDERED: PANTOPRAZOLE 40 MG VIAL IV STA (15:12)
[2021-05-07 15:31] LABS: Basophils % 0.1 % (0.0-0.8); Eosinophils % 0.1 % (0.00-10.9); Hematocrit 19.2 VOL% (35.7-47.0); Immature Granulocytes % 3.2 %; Immature Granulocytes Absolute 0.86 #; Lymphocytes # 5.7 10*3/uL (1.4-4.0); Lymphocytes % 21.2 % (21.3-54.2); Mean Corpuscular HGB Conc 30.7 GM/DL (32-36); Mean Corpuscular Volume 98.5 FL (87-102); Mean Platelet Volume 10.6 FL (9.6-12.0); Monocytes % 5.2 % (1.7-12.7); Neutrophils % 70.2 % (38.7-73.9); Platelet Count 240 T/CUMM (130-400); Red Blood Count 1.95 MC/CUMM (3.8-5.5); Red Cell Distribution Width 17.8 % (9.3-17.3); White Blood Count 27.1 T/CUMM (4-12)
[2021-05-07 15:40] LABS: Hemoglobin 5.9 GM/DL (12.0-16.0)
[2021-05-07 15:52] LABS: Albumin 2.4 G/DL (3.4-5.0); Bilirubin,Total 0.5 MG/DL (0.20-1.00); Calcium 8.2 MG/DL (8.5-10.1); Potassium 3.5 MMOL/L (3.5-5.1); Total Protein 5.3 G/DL (6.4-8.2)
[2021-05-07 16:06] LABS: PT Patient Result 97.7 SECS (10.5-12.0); Partial Thromboplastin Time 45.4 SECS (23.9-33.8)
[2021-05-07] MEDS ORDERED: SODIUM CHLORIDE 0.9% 1,000 ML IV PRN ×2 (16:08→17:54)
[2021-05-07 16:45] LABS: INR 10.4
[2021-05-07] MEDS ORDERED: GLUCAGON 1 MG VIAL IM PRN (17:43)
[2021-05-07] MEDS ORDERED: DEXTROSE 50% 25 GM/50 ML VIAL IV PRN (17:43)
[2021-05-07] MEDS ORDERED: PHYTONADIONE INJ 10 MG in SODIUM CHLORIDE 0.9% 50 ML IV STA (17:51)
[2021-05-07] MEDS: ONDANSETRON 4 MG/2 ML VIAL IV PRN ×2 (17:56→22:03)
[2021-05-07] MEDS ORDERED: PHYTONADIONE INJ 5 MG in SODIUM CHLORIDE 0.9% 50 ML IV STA (18:22)
[2021-05-07] MEDS: traMADol 50 MG TABLET PO PRN (19:13)
[2021-05-07 19:16] LABS: Lymphocytes 17 % (20-55); Nucleated Red Blood Cells 2 (0-5); Segmented Neutrophils 73 % (50-85); Total Cells Counted 100
[2021-05-07 19:17] LABS: Anisocytosis 1+; Macrocytosis 1+; Microcytosis 1+; Platelet Estimate Adequate; Polychromasia 1+
[2021-05-07 19:18] LABS: Hypochromasia 1+
[2021-05-07] MEDS: ROSUVASTATIN 20 MG TABLET PO SCH (22:02)
[2021-05-07] MEDS: DILTIAZEM CD 120 MG CAPSULE PO SCH (22:02)
[2021-05-07] MEDS: SODIUM CHLORIDE 0.45% 1,000 ML IV SCH (22:02)
[2021-05-07] MEDS: INSULIN LISPRO 100 UNIT/ML SUBCUT SCH (22:03)
[2021-05-08] MEDS: traMADol 50 MG TABLET PO PRN ×2 (00:38→09:13)
[2021-05-08] MEDS: SODIUM CHLORIDE 0.45% 1,000 ML IV SCH ×3 (03:20→21:38)
[2021-05-08] MEDS: PANTOPRAZOLE 40 MG VIAL IV SCH ×3 (03:23→21:27)
[2021-05-08 04:45] LABS: INR 1.4; PT Patient Result 15.4 SECS (10.5-12.0)
[2021-05-08 05:20] LABS: Calcium 8.3 MG/DL (8.5-10.1); Potassium 3.2 MMOL/L (3.5-5.1); Risk Ratio 2.85; Thyroid Stimulating Hormone 1.73 uIU/ml (0.358-3.74); VLDL Cholesterol 32.6 MG/DL
[2021-05-08 06:15] LABS: Basophils % 0.2 % (0.0-0.8); Eosinophils % 0.2 % (0.00-10.9); Hemoglobin 7.7 GM/DL (12.0-16.0); Immature Granulocytes % 1.8 %; Immature Granulocytes Absolute 0.35 #; Lymphocytes # 3.2 10*3/uL (1.4-4.0); Lymphocytes % 16.6 % (21.3-54.2); Mean Corpuscular HGB Conc 33.5 GM/DL (32-36); Mean Corpuscular Volume 90.6 FL (87-102); Mean Platelet Volume 10.4 FL (9.6-12.0); Monocytes % 10.1 % (1.7-12.7); NRBC # 0.24 10*3/uL; Neutrophils % 71.1 % (38.7-73.9); Platelet Count 163 T/CUMM (130-400); Red Blood Count 2.54 MC/CUMM (3.8-5.5)
[2021-05-08] MEDS: INSULIN LISPRO 100 UNIT/ML SUBCUT SCH ×4 (08:07→20:24)
[2021-05-08] MEDS: METOPROLOL SUCCINATE XL 50 MG TABLET PO SCH (09:13)
[2021-05-08] MEDS: DILTIAZEM CD 120 MG CAPSULE PO SCH ×2 (09:13→21:24)
[2021-05-08] MEDS: PROMETHAZINE 25 MG TABLET PO PRN ×2 (09:14→16:51)
[2021-05-08] MEDS: ONDANSETRON 4 MG/2 ML VIAL IV PRN (13:39)
[2021-05-08] MEDS: oxyCODONE/ACETAMINOPHEN 5-325 MG TABLET PO PRN (16:51)
[2021-05-08] MEDS: ROSUVASTATIN 20 MG TABLET PO SCH (21:24)
[2021-05-09] MEDS: oxyCODONE/ACETAMINOPHEN 5-325 MG TABLET PO PRN ×3 (00:09→22:41)
[2021-05-09] MEDS: PROMETHAZINE 25 MG TABLET PO PRN ×4 (00:09→22:41)
[2021-05-09 05:25] LABS: Basophils % 0.1 % (0.0-0.8); Eosinophils # 0.2 10*3/uL (0.0-0.87); Eosinophils % 1.2 % (0.00-10.9); Hematocrit 24.1 VOL% (35.7-47.0); Hemoglobin 7.5 GM/DL (12.0-16.0); Immature Granulocytes % 1.1 %; Immature Granulocytes Absolute 0.14 #; Lymphocytes # 3.5 10*3/uL (1.4-4.0); Lymphocytes % 28.8 % (21.3-54.2); Mean Corpuscular HGB Conc 31.1 GM/DL (32-36); Mean Platelet Volume 10.5 FL (9.6-12.0); Monocytes % 9.1 % (1.7-12.7); Neutrophils % 59.7 % (38.7-73.9); Platelet Count 176 T/CUMM (130-400); Red Blood Count 2.51 MC/CUMM (3.8-5.5); Red Cell Distribution Width 15.6 % (9.3-17.3); White Blood Count 12.3 T/CUMM (4-12)
[2021-05-09 05:35] LABS: INR 1.3; PT Patient Result 14.2 SECS (10.5-12.0)
[2021-05-09] MEDS: SODIUM CHLORIDE 0.45% 1,000 ML IV SCH ×3 (05:45→19:04)
[2021-05-09 05:54] LABS: Calcium 8.2 MG/DL (8.5-10.1); Osmolality,Calculated 279.4 MOS/KG (273-304); Potassium 3.1 MMOL/L (3.5-5.1)
[2021-05-09] MEDS ORDERED: LACTATED RINGERS 1,000 ML IV SCH (06:30)
[2021-05-09] MEDS: POTASSIUM CHLORIDE RIDER 10 MEQ/100 ML PREMIX IV PRN ×4 (06:52→16:42)
[2021-05-09] MEDS: INSULIN LISPRO 100 UNIT/ML SUBCUT SCH ×4 (07:17→22:10)
[2021-05-09] MEDS ORDERED: LIDOCAINE 2% 5 ML VIAL ONE (08:20)
[2021-05-09] MEDS ORDERED: propofoL 200 MG/20 ML VIAL IV ONE (08:20)
[2021-05-09] MEDS ORDERED: PHENYLEPHRINE 1 MG/10 ML SYRINGE IV ONE (08:20)
[2021-05-09] MEDS ORDERED: ePHEDrine 50 MG/ML VIAL ONE (08:23)
[2021-05-09] MEDS ORDERED: ONDANSETRON 4 MG/2 ML VIAL ONE (08:23)
[2021-05-09] MEDS ORDERED: PROMETHAZINE 25 MG/1 ML VIAL ONE (08:55)
[2021-05-09] MEDS ORDERED: PROMETHAZINE INJ 12.5 MG in SODIUM CHLORIDE 0.9% 50 ML IV ONE (08:55)
[2021-05-09] MEDS: DILTIAZEM CD 120 MG CAPSULE PO SCH ×2 (09:57→21:53)
[2021-05-09] MEDS: METOPROLOL SUCCINATE XL 50 MG TABLET PO SCH (09:57)
[2021-05-09] MEDS: PANTOPRAZOLE 40 MG VIAL IV SCH ×2 (09:57→21:54)
[2021-05-09] MEDS: traMADol 50 MG TABLET PO PRN (10:39)
[2021-05-09] MEDS: ROSUVASTATIN 20 MG TABLET PO SCH (21:53)
[2021-05-10] MEDS: SODIUM CHLORIDE 0.45% 1,000 ML IV SCH ×4 (02:55→21:40)
[2021-05-10] MEDS: PROMETHAZINE 25 MG TABLET PO PRN ×3 (05:25→23:05)
[2021-05-10] MEDS: oxyCODONE/ACETAMINOPHEN 5-325 MG TABLET PO PRN ×3 (05:31→23:05)
[2021-05-10 08:10] LABS: Basophils % 0.3 % (0.0-0.8); Eosinophils # 0.2 10*3/uL (0.0-0.87); Hematocrit 22.1 VOL% (35.7-47.0); Immature Granulocytes % 0.5 %; Immature Granulocytes Absolute 0.04 #; Lymphocytes # 2.5 10*3/uL (1.4-4.0); Lymphocytes % 33.1 % (21.3-54.2); Mean Corpuscular HGB Conc 31.7 GM/DL (32-36); Mean Corpuscular Volume 94.4 FL (87-102); Mean Platelet Volume 10.4 FL (9.6-12.0); Monocytes % 10.4 % (1.7-12.7); Neutrophils % 53.7 % (38.7-73.9); Platelet Count 172 T/CUMM (130-400); Red Blood Count 2.34 MC/CUMM (3.8-5.5); Red Cell Distribution Width 15.6 % (9.3-17.3); White Blood Count 7.5 T/CUMM (4-12)
[2021-05-10 08:19] LABS: INR 1.5; PT Patient Result 16.1 SECS (10.5-12.0)
[2021-05-10] MEDS: INSULIN LISPRO 100 UNIT/ML SUBCUT SCH ×3 (08:34→15:48)
[2021-05-10] MEDS: DILTIAZEM CD 120 MG CAPSULE PO SCH ×2 (08:59→22:17)
[2021-05-10] MEDS: METOPROLOL SUCCINATE XL 50 MG TABLET PO SCH (08:59)
[2021-05-10] MEDS: PANTOPRAZOLE 40 MG TABLET PO SCH ×2 (08:59→18:20)
[2021-05-10] MEDS ORDERED: SODIUM CHLORIDE 0.9% 1,000 ML IV PRN (09:22)
[2021-05-10 19:30] LABS: Hemoglobin 10.4 GM/DL (12.0-16.0)
[2021-05-10] MEDS: ROSUVASTATIN 20 MG TABLET PO SCH (22:12)
[2021-05-11] MEDS: INSULIN LISPRO 100 UNIT/ML SUBCUT SCH ×5 (02:53→21:32)
[2021-05-11] MEDS ORDERED: FUROSEMIDE 20 MG/2 ML VIAL IV ONE ×2 (05:01→07:02)
[2021-05-11] MEDS ORDERED: FUROSEMIDE 40 MG/4 ML VIAL ONE (05:03)
[2021-05-11] MEDS: PANTOPRAZOLE 40 MG TABLET PO SCH ×2 (07:42→18:24)
[2021-05-11 07:59] LABS: Basophils % 0.3 % (0.0-0.8); Eosinophils # 0.1 10*3/uL (0.0-0.87); Eosinophils % 1.9 % (0.00-10.9); Hematocrit 36.2 VOL% (35.7-47.0); Hemoglobin 11.4 GM/DL (12.0-16.0); Immature Granulocytes % 0.6 %; Immature Granulocytes Absolute 0.04 #; Lymphocytes # 1.9 10*3/uL (1.4-4.0); Lymphocytes % 26.7 % (21.3-54.2); Mean Corpuscular HGB Conc 31.5 GM/DL (32-36); Mean Corpuscular Volume 91.4 FL (87-102); Mean Platelet Volume 10.3 FL (9.6-12.0); Monocytes % 9.2 % (1.7-12.7); NRBC # 0.12 10*3/uL; Neutrophils % 61.3 % (38.7-73.9); Platelet Count 213 T/CUMM (130-400); Red Blood Count 3.96 MC/CUMM (3.8-5.5); Red Cell Distribution Width 15.4 % (9.3-17.3); White Blood Count 7.3 T/CUMM (4-12)
[2021-05-11 08:08] LABS: INR 1.3; PT Patient Result 14.6 SECS (10.5-12.0)
[2021-05-11] MEDS: ASCORBIC ACID 500 MG TABLET PO SCH ×2 (09:48→21:29)
[2021-05-11] MEDS: DILTIAZEM CD 120 MG CAPSULE PO SCH ×2 (09:48→21:30)
[2021-05-11] MEDS: ASPIRIN EC 81 MG TABLET PO SCH (09:48)
[2021-05-11] MEDS: GABAPENTIN 400 MG CAPSULE PO SCH ×2 (09:48→21:28)
[2021-05-11] MEDS: MONTELUKAST 10 MG TABLET PO SCH (09:48)
[2021-05-11] MEDS: POTASSIUM CHLORIDE 10 MEQ TABLET PO SCH ×2 (09:49→21:28)
[2021-05-11] MEDS: METOPROLOL SUCCINATE XL 50 MG TABLET PO SCH (09:49)
[2021-05-11] MEDS: MAGNESIUM OXIDE 400 MG TABLET PO SCH ×2 (09:49→21:27)
[2021-05-11] MEDS: metFORMIN 500 MG TABLET PO SCH (09:49)
[2021-05-11] MEDS: THEOPHYLLINE ER (24 HR) 400 MG TABLET PO SCH (09:49)
[2021-05-11] MEDS: FUROSEMIDE 20 MG TABLET PO SCH ×2 (09:49→21:29)
[2021-05-11] MEDS: oxyCODONE/ACETAMINOPHEN 5-325 MG TABLET PO PRN ×2 (09:50→16:11)
[2021-05-11] MEDS: PROMETHAZINE 25 MG TABLET PO PRN ×2 (09:51→16:11)
[2021-05-11] MEDS: DOFETILIDE 250 MCG CAPSULE PO SCH ×2 (11:23→21:28)
[2021-05-11] MEDS: ALBUTEROL/IPRATROPIUM 3 ML NEB RESP TX SCH ×2 (12:44→20:03)
[2021-05-11] MEDS: WARFARIN 5 MG TABLET PO SCH (18:25)
[2021-05-11] MEDS: ROSUVASTATIN 20 MG TABLET PO SCH (21:27)
[2021-05-11] MEDS: GABAPENTIN 600 MG TABLET PO SCH (21:28)
[2021-05-11] MEDS: MULTIVITAMIN (CENTRUM) TABLET PO SCH (21:28)
[2021-05-12] MEDS: oxyCODONE/ACETAMINOPHEN 5-325 MG TABLET PO PRN ×3 (01:46→21:01)
[2021-05-12] MEDS: ONDANSETRON 4 MG/2 ML VIAL IV PRN ×2 (01:46→20:58)
[2021-05-12] MEDS: ALBUTEROL/IPRATROPIUM 3 ML NEB RESP TX SCH ×4 (02:06→19:26)
[2021-05-12] MEDS: PANTOPRAZOLE 40 MG TABLET PO SCH ×2 (06:12→18:48)
[2021-05-12 07:24] LABS: Basophils % 0.1 % (0.0-0.8); Eosinophils # 0.2 10*3/uL (0.0-0.87); Eosinophils % 2.4 % (0.00-10.9); Hematocrit 31.1 VOL% (35.7-47.0); Hemoglobin 9.8 GM/DL (12.0-16.0); Immature Granulocytes % 0.6 %; Immature Granulocytes Absolute 0.04 #; Lymphocytes # 1.7 10*3/uL (1.4-4.0); Lymphocytes % 24.9 % (21.3-54.2); Mean Corpuscular HGB Conc 31.5 GM/DL (32-36); Mean Corpuscular Volume 90.9 FL (87-102); Mean Platelet Volume 10.2 FL (9.6-12.0); Monocytes % 10.5 % (1.7-12.7); NRBC # 0.03 10*3/uL; Neutrophils % 61.5 % (38.7-73.9); Platelet Count 210 T/CUMM (130-400); Red Blood Count 3.42 MC/CUMM (3.8-5.5); White Blood Count 6.8 T/CUMM (4-12)
[2021-05-12 07:53] LABS: INR 1.2; PT Patient Result 13.4 SECS (10.5-12.0)
[2021-05-12] MEDS: INSULIN LISPRO 100 UNIT/ML SUBCUT SCH ×4 (08:02→21:02)
[2021-05-12] MEDS: THEOPHYLLINE ER (24 HR) 400 MG TABLET PO SCH (08:46)
[2021-05-12] MEDS: ASPIRIN EC 81 MG TABLET PO SCH (08:47)
[2021-05-12] MEDS: metFORMIN 500 MG TABLET PO SCH (08:47)
[2021-05-12] MEDS: MONTELUKAST 10 MG TABLET PO SCH (08:47)
[2021-05-12] MEDS: DILTIAZEM CD 120 MG CAPSULE PO SCH ×2 (08:47→21:00)
[2021-05-12] MEDS: MAGNESIUM OXIDE 400 MG TABLET PO SCH ×2 (08:47→21:01)
[2021-05-12] MEDS: POTASSIUM CHLORIDE 10 MEQ TABLET PO SCH ×2 (08:47→21:00)
[2021-05-12] MEDS: DOFETILIDE 250 MCG CAPSULE PO SCH ×2 (08:47→20:58)
[2021-05-12] MEDS: FUROSEMIDE 40 MG TABLET PO SCH ×2 (08:47→16:01)
[2021-05-12] MEDS: GABAPENTIN 400 MG CAPSULE PO SCH ×2 (08:47→20:58)
[2021-05-12] MEDS: ASCORBIC ACID 500 MG TABLET PO SCH ×2 (08:47→20:59)
[2021-05-12] MEDS: PROMETHAZINE 25 MG TABLET PO PRN ×2 (08:48→21:36)
[2021-05-12] MEDS: METOPROLOL SUCCINATE XL 50 MG TABLET PO SCH (09:48)
[2021-05-12 15:55] LABS: Hematocrit 32.8 VOL% (35.7-47.0); Hemoglobin 10.4 GM/DL (12.0-16.0)
[2021-05-12] MEDS: WARFARIN 5 MG TABLET PO SCH (18:48)
[2021-05-12] MEDS: GABAPENTIN 600 MG TABLET PO SCH (20:58)
[2021-05-12] MEDS: ROSUVASTATIN 20 MG TABLET PO SCH (20:59)
[2021-05-12] MEDS: MULTIVITAMIN (CENTRUM) TABLET PO SCH (21:00)
[2021-05-13] MEDS: ALBUTEROL/IPRATROPIUM 3 ML NEB RESP TX SCH ×3 (01:16→12:09)
[2021-05-13] MEDS: PANTOPRAZOLE 40 MG TABLET PO SCH ×2 (06:00→18:02)
[2021-05-13 06:46] LABS: Basophils % 0.4 % (0.0-0.8); Eosinophils # 0.3 10*3/uL (0.0-0.87); Eosinophils % 3.5 % (0.00-10.9); Hematocrit 35.9 VOL% (35.7-47.0); Hemoglobin 11.1 GM/DL (12.0-16.0); Immature Granulocytes % 0.4 %; Immature Granulocytes Absolute 0.03 #; Lymphocytes # 2.6 10*3/uL (1.4-4.0); Lymphocytes % 31.4 % (21.3-54.2); Mean Corpuscular HGB Conc 30.9 GM/DL (32-36); Mean Platelet Volume 10.1 FL (9.6-12.0); Monocytes % 9.8 % (1.7-12.7); NRBC # 0.03 10*3/uL; Neutrophils % 54.5 % (38.7-73.9); Platelet Count 301 T/CUMM (130-400); Red Blood Count 3.86 MC/CUMM (3.8-5.5); Red Cell Distribution Width 15.2 % (9.3-17.3); White Blood Count 8.4 T/CUMM (4-12)
[2021-05-13 06:56] LABS: INR 1.2
[2021-05-13 07:12] LABS: Osmolality,Calculated 283.3 MOS/KG (273-304); Potassium 3.2 MMOL/L (3.5-5.1)
[2021-05-13] MEDS ORDERED: POTASSIUM CHLORIDE 20 MEQ TABLET PO ONE (07:20)
[2021-05-13] MEDS: INSULIN LISPRO 100 UNIT/ML SUBCUT SCH ×4 (08:15→20:51)
[2021-05-13] MEDS: MAGNESIUM OXIDE 400 MG TABLET PO SCH ×2 (09:03→20:51)
[2021-05-13] MEDS: GABAPENTIN 400 MG CAPSULE PO SCH ×2 (09:03→20:50)
[2021-05-13] MEDS: POTASSIUM CHLORIDE 10 MEQ TABLET PO SCH ×2 (09:04→20:51)
[2021-05-13] MEDS: DOFETILIDE 250 MCG CAPSULE PO SCH ×2 (09:04→20:50)
[2021-05-13] MEDS: ASPIRIN EC 81 MG TABLET PO SCH (09:04)
[2021-05-13] MEDS: MONTELUKAST 10 MG TABLET PO SCH (09:04)
[2021-05-13] MEDS: FUROSEMIDE 40 MG TABLET PO SCH ×2 (09:04→16:09)
[2021-05-13] MEDS: METOPROLOL SUCCINATE XL 50 MG TABLET PO SCH (09:04)
[2021-05-13] MEDS: THEOPHYLLINE ER (24 HR) 400 MG TABLET PO SCH (09:04)
[2021-05-13] MEDS: DILTIAZEM CD 120 MG CAPSULE PO SCH ×2 (09:04→20:51)
[2021-05-13] MEDS: ASCORBIC ACID 500 MG TABLET PO SCH ×2 (09:05→20:50)
[2021-05-13] MEDS: metFORMIN 500 MG TABLET PO SCH (09:05)
[2021-05-13] MEDS: oxyCODONE/ACETAMINOPHEN 5-325 MG TABLET PO PRN ×2 (14:09→20:47)
[2021-05-13] MEDS: PROMETHAZINE 25 MG TABLET PO PRN ×2 (14:09→20:50)
[2021-05-13] MEDS: WARFARIN 5 MG TABLET PO SCH (18:01)
[2021-05-13] MEDS: ONDANSETRON 4 MG/2 ML VIAL IV PRN (20:47)
[2021-05-13] MEDS: GABAPENTIN 600 MG TABLET PO SCH (20:50)
[2021-05-13] MEDS: MULTIVITAMIN (CENTRUM) TABLET PO SCH (20:50)
[2021-05-13] MEDS: ROSUVASTATIN 20 MG TABLET PO SCH (20:51)
[2021-05-14] MEDS: tiZANidine 4 MG TABLET PO PRN ×2 (02:03→14:34)
[2021-05-14] MEDS: ALBUTEROL/IPRATROPIUM 3 ML NEB RESP TX SCH ×4 (02:41→19:20)
[2021-05-14] MEDS: traMADol 50 MG TABLET PO PRN ×2 (04:52→18:41)
[2021-05-14] MEDS: PANTOPRAZOLE 40 MG TABLET PO SCH ×2 (06:02→18:42)
[2021-05-14 06:07] LABS: INR 2.2
[2021-05-14 06:29] LABS: Calcium 8.2 MG/DL (8.5-10.1); Osmolality,Calculated 281.4 MOS/KG (273-304); Potassium 3.1 MMOL/L (3.5-5.1)
[2021-05-14] MEDS: INSULIN LISPRO 100 UNIT/ML SUBCUT SCH ×4 (08:04→21:50)
[2021-05-14] MEDS: GABAPENTIN 400 MG CAPSULE PO SCH ×2 (09:16→21:48)
[2021-05-14] MEDS: MONTELUKAST 10 MG TABLET PO SCH (09:16)
[2021-05-14] MEDS: METOPROLOL SUCCINATE XL 50 MG TABLET PO SCH (09:16)
[2021-05-14] MEDS: metFORMIN 500 MG TABLET PO SCH (09:16)
[2021-05-14] MEDS: POTASSIUM CHLORIDE 10 MEQ TABLET PO SCH ×2 (09:16→21:50)
[2021-05-14] MEDS: FUROSEMIDE 40 MG TABLET PO SCH ×2 (09:16→16:04)
[2021-05-14] MEDS: MAGNESIUM OXIDE 400 MG TABLET PO SCH ×2 (09:16→21:50)
[2021-05-14] MEDS: POTASSIUM CHLORIDE RIDER 10 MEQ/100 ML PREMIX IV PRN ×2 (09:17→16:05)
[2021-05-14] MEDS: THEOPHYLLINE ER (24 HR) 400 MG TABLET PO SCH (09:17)
[2021-05-14] MEDS: ASCORBIC ACID 500 MG TABLET PO SCH ×2 (09:17→21:45)
[2021-05-14] MEDS: DILTIAZEM CD 120 MG CAPSULE PO SCH ×2 (09:17→21:49)
[2021-05-14] MEDS: ASPIRIN EC 81 MG TABLET PO SCH (09:17)
[2021-05-14] MEDS: DOFETILIDE 250 MCG CAPSULE PO SCH ×2 (09:22→21:49)
[2021-05-14] MEDS ORDERED: ALBUTEROL/IPRATROPIUM 3 ML NEB RESP TX PRN (11:02)
[2021-05-14] MEDS: oxyCODONE/ACETAMINOPHEN 5-325 MG TABLET PO PRN (11:33)
[2021-05-14] MEDS: predniSONE 20 MG TABLET PO SCH (16:04)
[2021-05-14] MEDS: WARFARIN 5 MG TABLET PO SCH (18:42)
[2021-05-14] MEDS ORDERED: POTASSIUM CHLORIDE 20 MEQ TABLET PO PRN (18:50)
[2021-05-14] MEDS: ROSUVASTATIN 20 MG TABLET PO SCH (21:47)
[2021-05-14] MEDS: MULTIVITAMIN (CENTRUM) TABLET PO SCH (21:48)
[2021-05-14] MEDS: GABAPENTIN 600 MG TABLET PO SCH (21:48)
[2021-05-15] MEDS: ALBUTEROL/IPRATROPIUM 3 ML NEB RESP TX SCH ×6 (01:15→23:12)
[2021-05-15] MEDS: oxyCODONE/ACETAMINOPHEN 5-325 MG TABLET PO PRN ×4 (01:46→22:35)
[2021-05-15] MEDS: ONDANSETRON 4 MG/2 ML VIAL IV PRN (01:47)
[2021-05-15 04:46] LABS: Basophils % 0.2 % (0.0-0.8); Hematocrit 31.7 VOL% (35.7-47.0); Hemoglobin 9.6 GM/DL (12.0-16.0); Immature Granulocytes % 0.6 %; Immature Granulocytes Absolute 0.04 #; Lymphocytes # 1.2 10*3/uL (1.4-4.0); Lymphocytes % 18.8 % (21.3-54.2); Mean Corpuscular HGB Conc 30.3 GM/DL (32-36); Mean Corpuscular Volume 91.6 FL (87-102); Mean Platelet Volume 10.1 FL (9.6-12.0); Monocytes % 9.3 % (1.7-12.7); NRBC # 0.02 10*3/uL; Neutrophils % 71.1 % (38.7-73.9); Platelet Count 322 T/CUMM (130-400); Red Blood Count 3.46 MC/CUMM (3.8-5.5); Red Cell Distribution Width 15.1 % (9.3-17.3); White Blood Count 6.4 T/CUMM (4-12)
[2021-05-15] MEDS: PANTOPRAZOLE 40 MG TABLET PO SCH ×2 (06:13→18:22)
[2021-05-15 07:01] LABS: INR 7.5
[2021-05-15] MEDS: MONTELUKAST 10 MG TABLET PO SCH (09:14)
[2021-05-15] MEDS: GABAPENTIN 400 MG CAPSULE PO SCH ×2 (09:14→22:38)
[2021-05-15] MEDS: INSULIN LISPRO 100 UNIT/ML SUBCUT SCH ×4 (09:14→23:21)
[2021-05-15] MEDS: ASCORBIC ACID 500 MG TABLET PO SCH ×2 (09:15→22:37)
[2021-05-15] MEDS: POTASSIUM CHLORIDE 10 MEQ TABLET PO SCH ×2 (09:15→22:38)
[2021-05-15] MEDS: metFORMIN 500 MG TABLET PO SCH (09:15)
[2021-05-15] MEDS: PROMETHAZINE 25 MG TABLET PO PRN ×3 (09:15→22:36)
[2021-05-15] MEDS: ASPIRIN EC 81 MG TABLET PO SCH (09:15)
[2021-05-15] MEDS: DOFETILIDE 250 MCG CAPSULE PO SCH ×2 (09:15→23:24)
[2021-05-15] MEDS: METOPROLOL SUCCINATE XL 50 MG TABLET PO SCH (09:15)
[2021-05-15] MEDS: MAGNESIUM OXIDE 400 MG TABLET PO SCH ×2 (09:15→22:39)
[2021-05-15] MEDS: THEOPHYLLINE ER (24 HR) 400 MG TABLET PO SCH (09:16)
[2021-05-15] MEDS: DILTIAZEM CD 120 MG CAPSULE PO SCH ×2 (09:16→22:38)
[2021-05-15] MEDS: predniSONE 20 MG TABLET PO SCH (09:16)
[2021-05-15] MEDS: FUROSEMIDE 40 MG TABLET PO SCH (09:16)
[2021-05-15] MEDS ORDERED: ALBUTEROL/IPRATROPIUM 3 ML NEB RESP TX PRN (10:55)
[2021-05-15] MEDS ORDERED: methylPREDNISolone SOD SUC 40 MG/1 ML VIAL IV ONE (11:05)
[2021-05-15] MEDS: FUROSEMIDE 40 MG/4 ML VIAL IV SCH ×2 (11:53→16:06)
[2021-05-15 11:54] LABS: PT Patient Result 73.1 SECS (10.5-12.0)
[2021-05-15 12:04] LABS: INR 7.6
[2021-05-15] MEDS: WARFARIN 5 MG TABLET PO SCH (17:30)
[2021-05-15] MEDS: MULTIVITAMIN (CENTRUM) TABLET PO SCH (22:38)
[2021-05-15] MEDS: ROSUVASTATIN 20 MG TABLET PO SCH (22:38)
[2021-05-16] MEDS: traMADol 50 MG TABLET PO PRN (01:21)
[2021-05-16] MEDS: GABAPENTIN 600 MG TABLET PO SCH ×2 (01:23→20:25)
[2021-05-16] MEDS: oxyCODONE/ACETAMINOPHEN 5-325 MG TABLET PO PRN ×4 (04:20→22:06)
[2021-05-16] MEDS: PROMETHAZINE 25 MG TABLET PO PRN ×4 (04:20→22:07)
[2021-05-16] MEDS: ALBUTEROL/IPRATROPIUM 3 ML NEB RESP TX SCH ×6 (04:25→23:10)
[2021-05-16 05:44] LABS: Calcium 8.4 MG/DL (8.5-10.1); Osmolality,Calculated 282.7 MOS/KG (273-304); Potassium 3.7 MMOL/L (3.5-5.1)
[2021-05-16 06:38] LABS: Basophils % 0.1 % (0.0-0.8); Hematocrit 29.8 VOL% (35.7-47.0); Hemoglobin 9.4 GM/DL (12.0-16.0); Immature Granulocytes % 0.5 %; Immature Granulocytes Absolute 0.05 #; Lymphocytes # 0.9 10*3/uL (1.4-4.0); Lymphocytes % 8.8 % (21.3-54.2); Mean Corpuscular HGB Conc 31.5 GM/DL (32-36); Mean Platelet Volume 9.6 FL (9.6-12.0); Monocytes % 11.7 % (1.7-12.7); NRBC # 0.02 10*3/uL; Neutrophils % 78.9 % (38.7-73.9); Platelet Count 359 T/CUMM (130-400); Red Blood Count 3.35 MC/CUMM (3.8-5.5); Red Cell Distribution Width 15.5 % (9.3-17.3); White Blood Count 10.3 T/CUMM (4-12)
[2021-05-16 06:57] LABS: PT Patient Result 106.2 SECS (10.5-12.0)
[2021-05-16 07:01] LABS: INR 11.4
[2021-05-16] MEDS: PANTOPRAZOLE 40 MG TABLET PO SCH ×2 (08:26→20:25)
[2021-05-16] MEDS: FUROSEMIDE 40 MG/4 ML VIAL IV SCH ×2 (10:30→15:58)
[2021-05-16] MEDS: INSULIN LISPRO 100 UNIT/ML SUBCUT SCH ×4 (10:31→21:29)
[2021-05-16] MEDS: POTASSIUM CHLORIDE 10 MEQ TABLET PO SCH ×2 (10:32→20:25)
[2021-05-16] MEDS: THEOPHYLLINE ER (24 HR) 400 MG TABLET PO SCH (10:32)
[2021-05-16] MEDS: MONTELUKAST 10 MG TABLET PO SCH (10:32)
[2021-05-16] MEDS: MAGNESIUM OXIDE 400 MG TABLET PO SCH ×2 (10:32→20:25)
[2021-05-16] MEDS: ASCORBIC ACID 500 MG TABLET PO SCH ×2 (10:33→20:24)
[2021-05-16] MEDS: predniSONE 20 MG TABLET PO SCH (10:33)
[2021-05-16] MEDS: GABAPENTIN 400 MG CAPSULE PO SCH ×2 (10:34→15:58)
[2021-05-16] MEDS: METOPROLOL SUCCINATE XL 50 MG TABLET PO SCH (10:34)
[2021-05-16] MEDS: metFORMIN 500 MG TABLET PO SCH (10:34)
[2021-05-16] MEDS: ASPIRIN EC 81 MG TABLET PO SCH (10:35)
[2021-05-16] MEDS: DILTIAZEM CD 120 MG CAPSULE PO SCH ×2 (10:35→20:25)
[2021-05-16] MEDS: DOFETILIDE 250 MCG CAPSULE PO SCH ×2 (10:35→20:23)
[2021-05-16] MEDS: MULTIVITAMIN (CENTRUM) TABLET PO SCH (20:24)
[2021-05-16] MEDS: ROSUVASTATIN 20 MG TABLET PO SCH (20:24)
[2021-05-17] MEDS: traMADol 50 MG TABLET PO PRN (01:57)
[2021-05-17] MEDS: ALBUTEROL/IPRATROPIUM 3 ML NEB RESP TX SCH ×6 (02:45→23:45)
[2021-05-17 04:09] LABS: Basophils % 0.1 % (0.0-0.8); Hematocrit 32.1 VOL% (35.7-47.0); Hemoglobin 9.6 GM/DL (12.0-16.0); Immature Granulocytes % 0.6 %; Immature Granulocytes Absolute 0.08 #; Lymphocytes # 1.9 10*3/uL (1.4-4.0); Mean Corpuscular HGB Conc 29.9 GM/DL (32-36); Mean Corpuscular Volume 91.2 FL (87-102); Mean Platelet Volume 9.2 FL (9.6-12.0); Monocytes % 10.4 % (1.7-12.7); NRBC # 0.04 10*3/uL; Neutrophils % 73.9 % (38.7-73.9); Platelet Count 388 T/CUMM (130-400); Red Blood Count 3.52 MC/CUMM (3.8-5.5); Red Cell Distribution Width 15.6 % (9.3-17.3); White Blood Count 12.4 T/CUMM (4-12)
[2021-05-17 04:30] LABS: Calcium 8.5 MG/DL (8.5-10.1); Osmolality,Calculated 280.7 MOS/KG (273-304); Potassium 3.5 MMOL/L (3.5-5.1)
[2021-05-17] MEDS: PANTOPRAZOLE 40 MG TABLET PO SCH ×2 (06:25→18:37)
[2021-05-17] MEDS: oxyCODONE/ACETAMINOPHEN 5-325 MG TABLET PO PRN ×4 (06:26→23:41)
[2021-05-17 08:59] LABS: PT Patient Result 82.6 SECS (10.5-12.0)
[2021-05-17 09:08] LABS: INR 8.7
[2021-05-17] MEDS: MAGNESIUM OXIDE 400 MG TABLET PO SCH ×2 (09:35→20:28)
[2021-05-17] MEDS: DILTIAZEM CD 120 MG CAPSULE PO SCH ×2 (09:35→20:26)
[2021-05-17] MEDS: MONTELUKAST 10 MG TABLET PO SCH (09:36)
[2021-05-17] MEDS: ASCORBIC ACID 500 MG TABLET PO SCH ×2 (09:36→20:25)
[2021-05-17] MEDS: POTASSIUM CHLORIDE 10 MEQ TABLET PO SCH ×2 (09:36→20:25)
[2021-05-17] MEDS: THEOPHYLLINE ER (24 HR) 400 MG TABLET PO SCH (09:36)
[2021-05-17] MEDS: predniSONE 20 MG TABLET PO SCH (09:37)
[2021-05-17] MEDS: FUROSEMIDE 40 MG/4 ML VIAL IV SCH ×2 (09:37→15:32)
[2021-05-17] MEDS: metFORMIN 500 MG TABLET PO SCH (09:37)
[2021-05-17] MEDS: GABAPENTIN 400 MG CAPSULE PO SCH ×2 (09:37→15:32)
[2021-05-17] MEDS: DOFETILIDE 250 MCG CAPSULE PO SCH ×2 (09:37→20:24)
[2021-05-17] MEDS: ASPIRIN EC 81 MG TABLET PO SCH (09:38)
[2021-05-17] MEDS: INSULIN LISPRO 100 UNIT/ML SUBCUT SCH ×4 (09:38→21:20)
[2021-05-17] MEDS: METOPROLOL SUCCINATE XL 50 MG TABLET PO SCH (09:38)
[2021-05-17] MEDS: PROMETHAZINE 25 MG TABLET PO PRN ×3 (12:18→23:40)
[2021-05-17] MEDS: methylPREDNISolone SOD SUC 40 MG/1 ML VIAL IV SCH ×2 (13:19→18:05)
[2021-05-17] MEDS: ROSUVASTATIN 20 MG TABLET PO SCH (20:24)
[2021-05-17] MEDS: MULTIVITAMIN (CENTRUM) TABLET PO SCH (20:24)
[2021-05-17] MEDS: GABAPENTIN 600 MG TABLET PO SCH (20:26)
[2021-05-18] MEDS: methylPREDNISolone SOD SUC 40 MG/1 ML VIAL IV SCH ×3 (02:09→18:43)
[2021-05-18] MEDS: ALBUTEROL/IPRATROPIUM 3 ML NEB RESP TX SCH ×6 (03:40→23:25)
[2021-05-18 04:55] LABS: Hematocrit 30.4 VOL% (35.7-47.0); Hemoglobin 9.5 GM/DL (12.0-16.0); Immature Granulocytes % 0.7 %; Immature Granulocytes Absolute 0.06 #; Lymphocytes # 1.1 10*3/uL (1.4-4.0); Lymphocytes % 13.4 % (21.3-54.2); Mean Corpuscular HGB Conc 31.3 GM/DL (32-36); Mean Corpuscular Volume 89.9 FL (87-102); Mean Platelet Volume 9.3 FL (9.6-12.0); Monocytes % 8.2 % (1.7-12.7); NRBC # 0.03 10*3/uL; Neutrophils % 77.7 % (38.7-73.9); Platelet Count 394 T/CUMM (130-400); Red Blood Count 3.38 MC/CUMM (3.8-5.5); Red Cell Distribution Width 15.4 % (9.3-17.3); White Blood Count 8.3 T/CUMM (4-12)
[2021-05-18] MEDS: oxyCODONE/ACETAMINOPHEN 5-325 MG TABLET PO PRN ×3 (05:06→21:07)
[2021-05-18] MEDS: PROMETHAZINE 25 MG TABLET PO PRN ×3 (05:06→21:07)
[2021-05-18 05:20] LABS: PT Patient Result 70.8 SECS (10.5-12.0)
[2021-05-18 05:23] LABS: INR 7.3
[2021-05-18 05:26] LABS: Calcium 8.7 MG/DL (8.5-10.1); Potassium 3.5 MMOL/L (3.5-5.1)
[2021-05-18] MEDS: PANTOPRAZOLE 40 MG TABLET PO SCH ×2 (06:17→18:15)
[2021-05-18] MEDS: ASCORBIC ACID 500 MG TABLET PO SCH ×2 (09:56→21:08)
[2021-05-18] MEDS: GABAPENTIN 400 MG CAPSULE PO SCH ×2 (09:56→14:59)
[2021-05-18] MEDS: MONTELUKAST 10 MG TABLET PO SCH (09:56)
[2021-05-18] MEDS: MAGNESIUM OXIDE 400 MG TABLET PO SCH ×2 (09:57→21:07)
[2021-05-18] MEDS: metFORMIN 500 MG TABLET PO SCH (09:57)
[2021-05-18] MEDS: POTASSIUM CHLORIDE 10 MEQ TABLET PO SCH (09:57)
[2021-05-18] MEDS: INSULIN LISPRO 100 UNIT/ML SUBCUT SCH ×4 (09:57→21:08)
[2021-05-18] MEDS: METOPROLOL SUCCINATE XL 50 MG TABLET PO SCH (09:57)
[2021-05-18] MEDS: ASPIRIN EC 81 MG TABLET PO SCH (09:57)
[2021-05-18] MEDS: THEOPHYLLINE ER (24 HR) 400 MG TABLET PO SCH (09:57)
[2021-05-18] MEDS: DILTIAZEM CD 120 MG CAPSULE PO SCH ×2 (09:58→21:07)
[2021-05-18] MEDS: FUROSEMIDE 40 MG/4 ML VIAL IV SCH ×3 (10:06→18:22)
[2021-05-18] MEDS: DOFETILIDE 250 MCG CAPSULE PO SCH ×2 (12:12→21:06)
[2021-05-18] MEDS: ALBUMIN 25% 25 GM/100 ML VIAL IV SCH ×2 (12:12→18:21)
[2021-05-18] MEDS: POTASSIUM CHLORIDE 20 MEQ TABLET PO SCH ×2 (13:06→21:06)
[2021-05-18] MEDS: ROSUVASTATIN 20 MG TABLET PO SCH (21:06)
[2021-05-18] MEDS: MULTIVITAMIN (CENTRUM) TABLET PO SCH (21:07)
[2021-05-18] MEDS: GABAPENTIN 600 MG TABLET PO SCH (21:07)
[2021-05-19] MEDS: ALBUMIN 25% 25 GM/100 ML VIAL IV SCH ×3 (01:34→19:56)
[2021-05-19] MEDS: FUROSEMIDE 40 MG/4 ML VIAL IV SCH ×3 (02:39→21:37)
[2021-05-19] MEDS: methylPREDNISolone SOD SUC 40 MG/1 ML VIAL IV SCH ×3 (02:40→19:56)
[2021-05-19] MEDS: PROMETHAZINE 25 MG TABLET PO PRN ×3 (02:45→21:48)
[2021-05-19] MEDS: oxyCODONE/ACETAMINOPHEN 5-325 MG TABLET PO PRN ×3 (02:46→21:48)
[2021-05-19] MEDS: ALBUTEROL/IPRATROPIUM 3 ML NEB RESP TX SCH ×4 (03:52→14:10)
[2021-05-19 05:48] LABS: Hematocrit 31.3 VOL% (35.7-47.0); Hemoglobin 9.5 GM/DL (12.0-16.0); Immature Granulocytes % 0.7 %; Immature Granulocytes Absolute 0.06 #; Lymphocytes # 0.7 10*3/uL (1.4-4.0); Lymphocytes % 8.6 % (21.3-54.2); Mean Corpuscular HGB Conc 30.4 GM/DL (32-36); Mean Corpuscular Volume 91.3 FL (87-102); Mean Platelet Volume 9.3 FL (9.6-12.0); Monocytes % 5.7 % (1.7-12.7); NRBC # 0.07 10*3/uL; Platelet Count 405 T/CUMM (130-400); Red Blood Count 3.43 MC/CUMM (3.8-5.5); Red Cell Distribution Width 15.5 % (9.3-17.3); White Blood Count 8.4 T/CUMM (4-12)
[2021-05-19 06:04] LABS: PT Patient Result 52.9 SECS (10.5-12.0)
[2021-05-19 06:12] LABS: INR 5.4
[2021-05-19 06:17] LABS: Calcium 9.1 MG/DL (8.5-10.1); Osmolality,Calculated 278.2 MOS/KG (273-304); Potassium 3.9 MMOL/L (3.5-5.1)
[2021-05-19] MEDS: PANTOPRAZOLE 40 MG TABLET PO SCH ×2 (06:18→18:26)
[2021-05-19] MEDS: metFORMIN 500 MG TABLET PO SCH (09:47)
[2021-05-19] MEDS: DILTIAZEM CD 120 MG CAPSULE PO SCH ×2 (09:47→21:39)
[2021-05-19] MEDS: DOFETILIDE 250 MCG CAPSULE PO SCH ×2 (09:47→21:39)
[2021-05-19] MEDS: GABAPENTIN 400 MG CAPSULE PO SCH ×2 (09:47→16:49)
[2021-05-19] MEDS: ASCORBIC ACID 500 MG TABLET PO SCH ×2 (09:47→21:40)
[2021-05-19] MEDS: MAGNESIUM OXIDE 400 MG TABLET PO SCH ×2 (09:47→21:40)
[2021-05-19] MEDS: THEOPHYLLINE ER (24 HR) 400 MG TABLET PO SCH (09:47)
[2021-05-19] MEDS: ASPIRIN EC 81 MG TABLET PO SCH (09:47)
[2021-05-19] MEDS: MONTELUKAST 10 MG TABLET PO SCH (09:47)
[2021-05-19] MEDS: INSULIN LISPRO 100 UNIT/ML SUBCUT SCH ×4 (09:48→21:38)
[2021-05-19] MEDS: METOPROLOL SUCCINATE XL 50 MG TABLET PO SCH (09:48)
[2021-05-19] MEDS: POTASSIUM CHLORIDE 20 MEQ TABLET PO SCH ×2 (09:48→21:41)
[2021-05-19] MEDS: tiZANidine 4 MG TABLET PO PRN (18:26)
[2021-05-19 19:47] LABS: Bacteria,Urine Occasional /HPF (Few); Bilirubin,Urine Negative (Negative); Blood, Urine Negative (Negative); Glucose,Urine (UA) Negative (Negative); Hyaline Casts,Urine 3 /LPF (0-3); Ketones,Urine Negative (Negative); Mucus,Urine Occasional /LPF (Occasional); Nitrite,Urine Negative (Negative); Protein,Urine 100 MG/DL; RBC,Urine 8 /HPF (0-4); Squamous Epithelial Cell,Urine Occasional /HPF (0-10); Urine Appearance CLEAR (Clear); Urine Color Yellow (Yellow); Urine Urobilinogen < 2.0 EU/DL (0.2-1.0)
[2021-05-19] MEDS: BUDESONIDE 0.5 MG/2 ML NEB RESP TX SCH (20:17)
[2021-05-19] MEDS: ARFORMOTEROL 15 MCG/2 ML NEB RESP TX SCH (20:17)
[2021-05-19] MEDS: GABAPENTIN 600 MG TABLET PO SCH (21:40)
[2021-05-19] MEDS: SPIRONOLACTONE 25 MG TABLET PO SCH (21:40)
[2021-05-19] MEDS: MULTIVITAMIN (CENTRUM) TABLET PO SCH (21:40)
[2021-05-19] MEDS: ROSUVASTATIN 20 MG TABLET PO SCH (21:40)
[2021-05-20] MEDS: PROMETHAZINE 25 MG TABLET PO PRN ×3 (03:24→21:57)
[2021-05-20] MEDS: oxyCODONE/ACETAMINOPHEN 5-325 MG TABLET PO PRN ×3 (03:25→21:51)
[2021-05-20] MEDS: ALBUMIN 25% 25 GM/100 ML VIAL IV SCH ×2 (03:28→13:37)
[2021-05-20] MEDS: methylPREDNISolone SOD SUC 40 MG/1 ML VIAL IV SCH ×3 (03:28→21:58)
[2021-05-20 05:35] LABS: Hematocrit 28.6 VOL% (35.7-47.0); Hemoglobin 8.7 GM/DL (12.0-16.0); Immature Granulocytes % 0.8 %; Immature Granulocytes Absolute 0.05 #; Lymphocytes # 0.3 10*3/uL (1.4-4.0); Mean Corpuscular HGB Conc 30.4 GM/DL (32-36); Mean Corpuscular Volume 90.8 FL (87-102); Mean Platelet Volume 9.3 FL (9.6-12.0); Monocytes % 7.4 % (1.7-12.7); NRBC # 0.13 10*3/uL; Neutrophils % 86.8 % (38.7-73.9); Platelet Count 335 T/CUMM (130-400); Red Blood Count 3.15 MC/CUMM (3.8-5.5); Red Cell Distribution Width 15.8 % (9.3-17.3); White Blood Count 6.2 T/CUMM (4-12)
[2021-05-20 05:58] LABS: INR 4.4; PT Patient Result 43.7 SECS (10.5-12.0)
[2021-05-20 06:12] LABS: Calcium 9.2 MG/DL (8.5-10.1); Osmolality,Calculated 283.1 MOS/KG (273-304); Potassium 3.3 MMOL/L (3.5-5.1)
[2021-05-20] MEDS: PANTOPRAZOLE 40 MG TABLET PO SCH ×2 (06:28→18:01)
[2021-05-20] MEDS: BUDESONIDE 0.5 MG/2 ML NEB RESP TX SCH ×2 (06:59→20:01)
[2021-05-20] MEDS: ARFORMOTEROL 15 MCG/2 ML NEB RESP TX SCH ×2 (06:59→20:01)
[2021-05-20] MEDS: SPIRONOLACTONE 25 MG TABLET PO SCH ×2 (08:13→21:56)
[2021-05-20] MEDS: GABAPENTIN 400 MG CAPSULE PO SCH ×2 (08:13→15:28)
[2021-05-20] MEDS: ASPIRIN EC 81 MG TABLET PO SCH (08:13)
[2021-05-20] MEDS: MONTELUKAST 10 MG TABLET PO SCH (08:13)
[2021-05-20] MEDS: THEOPHYLLINE ER (24 HR) 400 MG TABLET PO SCH (08:13)
[2021-05-20] MEDS: metFORMIN 500 MG TABLET PO SCH (08:14)
[2021-05-20] MEDS: DILTIAZEM CD 120 MG CAPSULE PO SCH ×2 (08:14→21:54)
[2021-05-20] MEDS: ASCORBIC ACID 500 MG TABLET PO SCH ×2 (08:14→21:54)
[2021-05-20] MEDS: METOPROLOL SUCCINATE XL 50 MG TABLET PO SCH (08:14)
[2021-05-20] MEDS: POTASSIUM CHLORIDE 20 MEQ TABLET PO SCH ×2 (08:14→21:56)
[2021-05-20] MEDS: FUROSEMIDE 40 MG/4 ML VIAL IV SCH ×2 (08:19→15:33)
[2021-05-20] MEDS: INSULIN LISPRO 100 UNIT/ML SUBCUT SCH ×4 (08:24→21:50)
[2021-05-20] MEDS: MAGNESIUM OXIDE 400 MG TABLET PO SCH ×2 (08:26→21:56)
[2021-05-20] MEDS: DOFETILIDE 250 MCG CAPSULE PO SCH ×2 (08:27→21:57)
[2021-05-20] MEDS: ROSUVASTATIN 20 MG TABLET PO SCH (21:55)
[2021-05-20] MEDS: MULTIVITAMIN (CENTRUM) TABLET PO SCH (21:56)
[2021-05-20] MEDS: GABAPENTIN 600 MG TABLET PO SCH (21:56)
[2021-05-21] MEDS: tiZANidine 4 MG TABLET PO PRN (02:00)
[2021-05-21] MEDS: oxyCODONE/ACETAMINOPHEN 5-325 MG TABLET PO PRN ×3 (06:10→22:29)
[2021-05-21 06:22] LABS: Basophils % 0.2 % (0.0-0.8); Hematocrit 29.7 VOL% (35.7-47.0); Immature Granulocytes % 0.6 %; Immature Granulocytes Absolute 0.04 #; Lymphocytes # 0.3 10*3/uL (1.4-4.0); Lymphocytes % 4.4 % (21.3-54.2); Mean Corpuscular HGB Conc 30.3 GM/DL (32-36); Mean Platelet Volume 9.6 FL (9.6-12.0); Monocytes % 7.6 % (1.7-12.7); NRBC # 0.09 10*3/uL; Neutrophils % 87.2 % (38.7-73.9); Platelet Count 291 T/CUMM (130-400); Red Blood Count 3.23 MC/CUMM (3.8-5.5); Red Cell Distribution Width 15.6 % (9.3-17.3); White Blood Count 6.4 T/CUMM (4-12)
[2021-05-21] MEDS: INSULIN LISPRO 100 UNIT/ML SUBCUT SCH ×4 (06:29→22:13)
[2021-05-21 06:32] LABS: INR 2.6; PT Patient Result 26.6 SECS (10.5-12.0)
[2021-05-21 06:43] LABS: Albumin 3.7 G/DL (3.4-5.0); Bilirubin,Total 1.5 MG/DL (0.20-1.00); Calcium 8.8 MG/DL (8.5-10.1); Osmolality,Calculated 283.8 MOS/KG (273-304); Potassium 3.6 MMOL/L (3.5-5.1); Total Protein 6.7 G/DL (6.4-8.2)
[2021-05-21 06:54] LABS: Calcium 9.1 MG/DL (8.5-10.1); Osmolality,Calculated 278.2 MOS/KG (273-304); Potassium 3.6 MMOL/L (3.5-5.1)
[2021-05-21] MEDS: ARFORMOTEROL 15 MCG/2 ML NEB RESP TX SCH ×2 (07:55→20:10)
[2021-05-21] MEDS: BUDESONIDE 0.5 MG/2 ML NEB RESP TX SCH ×2 (07:55→20:10)
[2021-05-21] MEDS: METOPROLOL SUCCINATE XL 50 MG TABLET PO SCH (08:04)
[2021-05-21] MEDS: ASPIRIN EC 81 MG TABLET PO SCH (08:04)
[2021-05-21] MEDS: ASCORBIC ACID 500 MG TABLET PO SCH ×2 (08:05→22:01)
[2021-05-21] MEDS: DOFETILIDE 250 MCG CAPSULE PO SCH ×2 (08:06→22:01)
[2021-05-21] MEDS: POTASSIUM CHLORIDE 20 MEQ TABLET PO SCH ×2 (08:06→22:00)
[2021-05-21] MEDS: GABAPENTIN 400 MG CAPSULE PO SCH ×2 (08:06→15:34)
[2021-05-21] MEDS: MAGNESIUM OXIDE 400 MG TABLET PO SCH ×2 (08:06→22:49)
[2021-05-21] MEDS: metFORMIN 500 MG TABLET PO SCH (08:06)
[2021-05-21] MEDS: DILTIAZEM CD 120 MG CAPSULE PO SCH ×2 (08:07→21:59)
[2021-05-21] MEDS: PANTOPRAZOLE 40 MG TABLET PO SCH ×2 (08:07→18:38)
[2021-05-21] MEDS: MONTELUKAST 10 MG TABLET PO SCH (08:08)
[2021-05-21] MEDS: SPIRONOLACTONE 25 MG TABLET PO SCH ×2 (08:11→21:59)
[2021-05-21 08:13] LABS: Hypochromasia 2+; Lymphocytes 5 % (20-55); Nucleated Red Blood Cells 2 (0-5); Platelet Estimate Normal; Polychromasia Slight; Segmented Neutrophils 87 % (50-85); Total Cells Counted 100
[2021-05-21] MEDS: methylPREDNISolone SOD SUC 40 MG/1 ML VIAL IV SCH ×2 (08:16→22:01)
[2021-05-21] MEDS: FUROSEMIDE 40 MG/4 ML VIAL IV SCH ×2 (08:18→15:45)
[2021-05-21] MEDS: PROMETHAZINE 25 MG TABLET PO PRN ×2 (15:35→22:29)
[2021-05-21] MEDS: THEOPHYLLINE ER (24 HR) 400 MG TABLET PO SCH (15:36)
[2021-05-21] MEDS: MULTIVITAMIN (CENTRUM) TABLET PO SCH (22:00)
[2021-05-21] MEDS: GABAPENTIN 600 MG TABLET PO SCH (22:01)
[2021-05-22] MEDS: tiZANidine 4 MG TABLET PO PRN ×2 (00:57→23:17)
[2021-05-22 06:35] LABS: Hematocrit 30.7 VOL% (35.7-47.0); Hemoglobin 9.3 GM/DL (12.0-16.0); Immature Granulocytes % 0.9 %; Immature Granulocytes Absolute 0.06 #; Lymphocytes # 0.6 10*3/uL (1.4-4.0); Mean Corpuscular HGB Conc 30.3 GM/DL (32-36); Mean Corpuscular Volume 89.8 FL (87-102); Mean Platelet Volume 9.3 FL (9.6-12.0); Monocytes % 7.8 % (1.7-12.7); NRBC # 0.07 10*3/uL; Neutrophils % 82.3 % (38.7-73.9); Platelet Count 271 T/CUMM (130-400); Red Blood Count 3.42 MC/CUMM (3.8-5.5); Red Cell Distribution Width 15.8 % (9.3-17.3); White Blood Count 6.7 T/CUMM (4-12)
[2021-05-22 06:45] LABS: INR 1.6; PT Patient Result 17.7 SECS (10.5-12.0)
[2021-05-22 07:10] LABS: Albumin 3.7 G/DL (3.4-5.0); Calcium 8.7 MG/DL (8.5-10.1); Osmolality,Calculated 287.4 MOS/KG (273-304); Potassium 3.4 MMOL/L (3.5-5.1); Total Protein 6.6 G/DL (6.4-8.2)
[2021-05-22] MEDS: ARFORMOTEROL 15 MCG/2 ML NEB RESP TX SCH ×2 (07:36→19:18)
[2021-05-22] MEDS: BUDESONIDE 0.5 MG/2 ML NEB RESP TX SCH ×2 (07:36→19:18)
[2021-05-22] MEDS: PANTOPRAZOLE 40 MG TABLET PO SCH ×2 (07:46→19:03)
[2021-05-22] MEDS: INSULIN LISPRO 100 UNIT/ML SUBCUT SCH ×4 (07:50→22:06)
[2021-05-22] MEDS: ASPIRIN EC 81 MG TABLET PO SCH (08:49)
[2021-05-22] MEDS: metFORMIN 500 MG TABLET PO SCH (08:49)
[2021-05-22] MEDS: DILTIAZEM CD 120 MG CAPSULE PO SCH ×2 (08:50→22:09)
[2021-05-22] MEDS: POTASSIUM CHLORIDE 20 MEQ TABLET PO SCH ×2 (08:50→22:11)
[2021-05-22] MEDS: MONTELUKAST 10 MG TABLET PO SCH (08:50)
[2021-05-22] MEDS: GABAPENTIN 400 MG CAPSULE PO SCH ×2 (08:51→14:51)
[2021-05-22] MEDS: METOPROLOL SUCCINATE XL 50 MG TABLET PO SCH (08:51)
[2021-05-22] MEDS: SPIRONOLACTONE 25 MG TABLET PO SCH ×2 (08:53→22:08)
[2021-05-22] MEDS: THEOPHYLLINE ER (24 HR) 400 MG TABLET PO SCH (08:55)
[2021-05-22] MEDS: ASCORBIC ACID 500 MG TABLET PO SCH ×2 (09:00→22:12)
[2021-05-22] MEDS: methylPREDNISolone SOD SUC 40 MG/1 ML VIAL IV SCH ×2 (09:12→22:12)
[2021-05-22] MEDS: FUROSEMIDE 40 MG/4 ML VIAL IV SCH ×2 (09:15→16:19)
[2021-05-22] MEDS: oxyCODONE/ACETAMINOPHEN 5-325 MG TABLET PO PRN ×2 (09:20→19:09)
[2021-05-22] MEDS: DOFETILIDE 250 MCG CAPSULE PO SCH ×2 (12:14→23:17)
[2021-05-22] MEDS ORDERED: DEXTROSE 50% 25 GM/50 ML VIAL IV PRN (16:05)
[2021-05-22] MEDS: MULTIVITAMIN (CENTRUM) TABLET PO SCH (22:08)
[2021-05-22] MEDS: GABAPENTIN 600 MG TABLET PO SCH (22:11)
[2021-05-23] MEDS: PROMETHAZINE 25 MG TABLET PO PRN (03:12)
[2021-05-23] MEDS: oxyCODONE/ACETAMINOPHEN 5-325 MG TABLET PO PRN ×2 (03:12→15:08)
[2021-05-23 06:35] LABS: Hematocrit 32.7 VOL% (35.7-47.0); Immature Granulocytes % 2.2 %; Immature Granulocytes Absolute 0.18 #; Lymphocytes # 0.9 10*3/uL (1.4-4.0); Lymphocytes % 10.7 % (21.3-54.2); Mean Corpuscular HGB Conc 30.6 GM/DL (32-36); Mean Corpuscular Volume 90.1 FL (87-102); Mean Platelet Volume 9.6 FL (9.6-12.0); Monocytes % 8.4 % (1.7-12.7); NRBC # 0.05 10*3/uL; Neutrophils % 78.7 % (38.7-73.9); Platelet Count 278 T/CUMM (130-400); Red Blood Count 3.63 MC/CUMM (3.8-5.5); Red Cell Distribution Width 15.7 % (9.3-17.3)
[2021-05-23] MEDS: PANTOPRAZOLE 40 MG TABLET PO SCH ×2 (06:41→19:11)
[2021-05-23 07:08] LABS: Albumin 3.6 G/DL (3.4-5.0); Bilirubin,Direct 0.44 MG/DL (0.0-0.20); Bilirubin,Indirect 0.5 MG/DL (0.0-1.0); Bilirubin,Total 0.9 MG/DL (0.20-1.00); Total Protein 6.4 G/DL (6.4-8.2)
[2021-05-23 07:11] LABS: Calcium 8.9 MG/DL (8.5-10.1); Osmolality,Calculated 284.2 MOS/KG (273-304); Potassium 3.9 MMOL/L (3.5-5.1)
[2021-05-23] MEDS: BUDESONIDE 0.5 MG/2 ML NEB RESP TX SCH ×2 (07:29→19:23)
[2021-05-23] MEDS: ARFORMOTEROL 15 MCG/2 ML NEB RESP TX SCH ×2 (07:29→19:23)
[2021-05-23] MEDS: INSULIN LISPRO 100 UNIT/ML SUBCUT SCH ×4 (08:25→21:45)
[2021-05-23] MEDS: GABAPENTIN 400 MG CAPSULE PO SCH ×2 (09:44→15:08)
[2021-05-23] MEDS: FUROSEMIDE 40 MG/4 ML VIAL IV SCH ×2 (09:44→15:09)
[2021-05-23] MEDS: METOPROLOL SUCCINATE XL 50 MG TABLET PO SCH (09:45)
[2021-05-23] MEDS: MONTELUKAST 10 MG TABLET PO SCH (09:45)
[2021-05-23] MEDS: DILTIAZEM CD 120 MG CAPSULE PO SCH ×2 (09:45→21:27)
[2021-05-23] MEDS: ASCORBIC ACID 500 MG TABLET PO SCH ×2 (09:46→21:27)
[2021-05-23] MEDS: ASPIRIN EC 81 MG TABLET PO SCH (09:46)
[2021-05-23] MEDS: POTASSIUM CHLORIDE 20 MEQ TABLET PO SCH ×2 (09:46→21:28)
[2021-05-23] MEDS: THEOPHYLLINE ER (24 HR) 400 MG TABLET PO SCH (09:46)
[2021-05-23] MEDS: DOFETILIDE 250 MCG CAPSULE PO SCH ×2 (09:47→21:29)
[2021-05-23] MEDS: metFORMIN 500 MG TABLET PO SCH (09:47)
[2021-05-23] MEDS: SPIRONOLACTONE 25 MG TABLET PO SCH ×2 (09:47→21:28)
[2021-05-23] MEDS: methylPREDNISolone SOD SUC 40 MG/1 ML VIAL IV SCH ×2 (09:58→21:29)
[2021-05-23] MEDS ORDERED: WARFARIN 2.5 MG TABLET PO SCH (18:00)
[2021-05-23] MEDS: GABAPENTIN 600 MG TABLET PO SCH (21:26)
[2021-05-23] MEDS: MULTIVITAMIN (CENTRUM) TABLET PO SCH (21:29)
[2021-05-24] MEDS: oxyCODONE/ACETAMINOPHEN 5-325 MG TABLET PO PRN (01:40)
[2021-05-24] MEDS: PROMETHAZINE 25 MG TABLET PO PRN (01:43)
[2021-05-24] MEDS: tiZANidine 4 MG TABLET PO PRN (03:55)
[2021-05-24 06:24] LABS: Basophils % 0.1 % (0.0-0.8); Hematocrit 32.5 VOL% (35.7-47.0); Hemoglobin 9.7 GM/DL (12.0-16.0); Immature Granulocytes % 1.6 %; Immature Granulocytes Absolute 0.14 #; Lymphocytes # 0.7 10*3/uL (1.4-4.0); Lymphocytes % 7.9 % (21.3-54.2); Mean Corpuscular HGB Conc 29.8 GM/DL (32-36); Mean Corpuscular Volume 91.3 FL (87-102); Mean Platelet Volume 9.5 FL (9.6-12.0); Monocytes % 10.5 % (1.7-12.7); NRBC # 0.04 10*3/uL; Neutrophils % 79.9 % (38.7-73.9); Platelet Count 259 T/CUMM (130-400); Red Blood Count 3.56 MC/CUMM (3.8-5.5); White Blood Count 8.9 T/CUMM (4-12)
[2021-05-24 06:32] LABS: INR 1.4; PT Patient Result 14.9 SECS (10.5-12.0)
[2021-05-24 06:55] LABS: Albumin 3.2 G/DL (3.4-5.0); Bilirubin,Direct 0.29 MG/DL (0.0-0.20); Bilirubin,Indirect 0.3 MG/DL (0.0-1.0); Bilirubin,Total 0.6 MG/DL (0.20-1.00); Total Protein 5.9 G/DL (6.4-8.2)
[2021-05-24 07:18] LABS: Calcium 8.6 MG/DL (8.5-10.1); Osmolality,Calculated 285.4 MOS/KG (273-304); Potassium 4.5 MMOL/L (3.5-5.1)
[2021-05-24] MEDS: PANTOPRAZOLE 40 MG TABLET PO SCH (07:18)
[2021-05-24] MEDS: INSULIN LISPRO 100 UNIT/ML SUBCUT SCH (07:52)
[2021-05-24] MEDS: ARFORMOTEROL 15 MCG/2 ML NEB RESP TX SCH (08:15)
[2021-05-24] MEDS: BUDESONIDE 0.5 MG/2 ML NEB RESP TX SCH (08:15)
[2021-05-24] MEDS: DOFETILIDE 250 MCG CAPSULE PO SCH (08:19)
[2021-05-24] MEDS: THEOPHYLLINE ER (24 HR) 400 MG TABLET PO SCH (08:20)
[2021-05-24] MEDS: ASPIRIN EC 81 MG TABLET PO SCH (08:20)
[2021-05-24] MEDS: METOPROLOL SUCCINATE XL 50 MG TABLET PO SCH (08:22)
[2021-05-24] MEDS: GABAPENTIN 400 MG CAPSULE PO SCH (08:22)
[2021-05-24] MEDS: metFORMIN 500 MG TABLET PO SCH (08:23)
[2021-05-24] MEDS: MONTELUKAST 10 MG TABLET PO SCH (08:23)
[2021-05-24] MEDS: SPIRONOLACTONE 25 MG TABLET PO SCH (08:23)
[2021-05-24] MEDS: DILTIAZEM CD 120 MG CAPSULE PO SCH (08:23)
[2021-05-24] MEDS: methylPREDNISolone SOD SUC 40 MG/1 ML VIAL IV SCH (08:26)
[2021-05-24] MEDS: FUROSEMIDE 40 MG/4 ML VIAL IV SCH (08:29)
[2021-05-24] MEDS: POTASSIUM CHLORIDE 20 MEQ TABLET PO SCH (08:34)
[2021-05-24] MEDS: ASCORBIC ACID 500 MG TABLET PO SCH (08:39)
[2021-05-24 10:27] VITALS: BP 91/51
== END 2021-05-24 13:00 | disposition home health service (06) | DRG 813 ==
LOC: N.ED 14:43 → SUATTDRO 17:43 → N.EDINP 17:43 → N.TELEN 18:26 → N.OB 05-20 20:37
PROVIDERS: ADMIT Internal Medicine; ATTEND Hospitalist

== ENCOUNTER 2021-08-12 19:05 | Inpatient (IN) ==
[2021-08-12] MEDS ORDERED: DILTIAZEM 100 MG VIAL.ADD IV ONE (19:22)
[2021-08-12] MEDS ORDERED: DILTIAZEM 25 MG/5 ML VIAL IV ONE (19:22)
[2021-08-12] MEDS ORDERED: methylPREDNISolone SOD SUC 125 MG/2 ML VIAL IV STA (19:26)
[2021-08-12] MEDS ORDERED: MORPHINE 2 MG/1 ML SYRINGE IV STA (19:26)
[2021-08-12] MEDS ORDERED: NITROGLYCERIN 2% OINT 1 INCH/GM PACK TOP STA (19:26)
[2021-08-12] MEDS ORDERED: ONDANSETRON 4 MG/2 ML VIAL IV STA (19:26)
[2021-08-12] MEDS ORDERED: DILTIAZEM 50 MG/10 ML VIAL IV STA (19:26)
[2021-08-12] MEDS ORDERED: FUROSEMIDE 100 MG/10 ML VIAL IV STA (19:26)
[2021-08-12 20:00] LABS: Basophils % 0.5 % (0.0-0.8); Eosinophils # 0.1 10*3/uL (0.0-0.87); Eosinophils % 1.3 % (0.00-10.9); Hematocrit 45.1 VOL% (35.7-47.0); Hemoglobin 13.4 GM/DL (12.0-16.0); Immature Granulocytes % 0.2 %; Immature Granulocytes Absolute 0.02 #; Lymphocytes # 2.8 10*3/uL (1.4-4.0); Lymphocytes % 33.8 % (21.3-54.2); Mean Corpuscular HGB Conc 29.7 GM/DL (32-36); Mean Corpuscular Volume 75.5 FL (87-102); Mean Platelet Volume 9.2 FL (9.6-12.0); Neutrophils % 52.2 % (38.7-73.9); Platelet Count 451 T/CUMM (130-400); Red Blood Count 5.97 MC/CUMM (3.8-5.5); Red Cell Distribution Width 19.4 % (9.3-17.3); White Blood Count 8.2 T/CUMM (4-12)
[2021-08-12] MEDS ORDERED: DILTIAZEM INJ 100 MG in SODIUM CHLORIDE 0.9% 100 ML IV SCH (20:00)
[2021-08-12 20:23] LABS: Albumin 3.2 G/DL (3.4-5.0); Bilirubin,Total 1.3 MG/DL (0.20-1.00); Calcium 9.2 MG/DL (8.5-10.1); Potassium 2.7 MMOL/L (3.5-5.1); Total Protein 7.6 G/DL (6.4-8.2)
[2021-08-12 20:34] LABS: Bilirubin,Urine Negative (Negative); Blood, Urine Small mg/dL (Negative); Glucose,Urine (UA) Negative (Negative); Ketones,Urine Negative (Negative); Nitrite,Urine Positive (Negative); Protein,Urine Negative; RBC,Urine 1 /HPF (0-4); Squamous Epithelial Cell,Urine Occasional /HPF (0-10); Urine Appearance CLEAR (Clear); Urine Color Yellow (Yellow); Urine Specific Gravity 1.005 (1.001-1.035); Urine Urobilinogen < 2.0 EU/DL (0.2-1.0)
[2021-08-12] MEDS ORDERED: MAGNESIUM SULF RIDER 2 GM/50 ML PREMIX IV STA (20:39)
[2021-08-12] MEDS ORDERED: POTASSIUM CHLORIDE 20 MEQ TABLET PO STA (20:39)
[2021-08-12 20:40] LABS: INR 2.3
[2021-08-12] MEDS ORDERED: DEXTROSE 50% 25 GM/50 ML VIAL IV PRN (21:00)
[2021-08-12] MEDS ORDERED: GLUCAGON 1 MG VIAL IM PRN (21:00)
[2021-08-12] MEDS ORDERED: LEVALBUTEROL 0.63 MG/3 ML NEB RESP TX PRN (21:13)
[2021-08-12] MEDS ORDERED: METOPROLOL TARTRATE 5 MG/5 ML VIAL IV ONE (22:00)
[2021-08-12] MEDS ORDERED: METOPROLOL TARTRATE 5 MG/5 ML VIAL IV STA (22:23)
[2021-08-12] MEDS ORDERED: POTASSIUM CHLORIDE 20 MEQ TABLET PO ONE (23:22)
[2021-08-12] MEDS: METOPROLOL TARTRATE 25 MG TABLET PO SCH (23:25)
[2021-08-12] MEDS: oxyCODONE/ACETAMINOPHEN 5-325 MG TABLET PO PRN (23:34)
[2021-08-13 04:39] LABS: INR 1.9
[2021-08-13 04:56] LABS: Basophils % 0.2 % (0.0-0.8); Hematocrit 42.1 VOL% (35.7-47.0); Immature Granulocytes % 0.9 %; Immature Granulocytes Absolute 0.06 #; Lymphocytes # 1.3 10*3/uL (1.4-4.0); Lymphocytes % 20.4 % (21.3-54.2); Mean Corpuscular HGB Conc 29.7 GM/DL (32-36); Mean Corpuscular Volume 75.9 FL (87-102); Mean Platelet Volume 9.8 FL (9.6-12.0); Monocytes % 1.4 % (1.7-12.7); Neutrophils % 77.1 % (38.7-73.9); Platelet Count 469 T/CUMM (130-400); Red Blood Count 5.55 MC/CUMM (3.8-5.5); Red Cell Distribution Width 19.2 % (9.3-17.3); White Blood Count 6.6 T/CUMM (4-12)
[2021-08-13 05:06] LABS: Hemoglobin 12.5 GM/DL (12.0-16.0)
[2021-08-13 05:58] LABS: Bilirubin,Total 0.5 MG/DL (0.20-1.00); Calcium 9.5 MG/DL (8.5-10.1); Osmolality,Calculated 273.4 MOS/KG (273-304); Potassium 3.7 MMOL/L (3.5-5.1); Risk Ratio 4.6; Thyroid Stimulating Hormone 1.19 uIU/ml (0.358-3.74); Total Protein 7.2 G/DL (6.4-8.2); VLDL Cholesterol 20.4 MG/DL
[2021-08-13] MEDS: DILTIAZEM INJ 100 MG in SODIUM CHLORIDE 0.9% 100 ML IV SCH (06:13)
[2021-08-13] MEDS: oxyCODONE/ACETAMINOPHEN 5-325 MG TABLET PO PRN ×2 (07:31→21:44)
[2021-08-13] MEDS: INSULIN LISPRO 100 UNIT/ML SUBCUT SCH ×2 (07:59→17:30)
[2021-08-13] MEDS: ASPIRIN EC 81 MG TABLET PO SCH (08:58)
[2021-08-13] MEDS: METOPROLOL TARTRATE 25 MG TABLET PO SCH ×2 (08:59→21:44)
[2021-08-13] MEDS ORDERED: WARFARIN 2.5 MG TABLET PO SCH ×3 (09:00→18:00)
[2021-08-13] MEDS: DOFETILIDE 250 MCG CAPSULE PO SCH (13:05)
[2021-08-13] MEDS: ONDANSETRON 4 MG/2 ML VIAL IV PRN ×2 (14:06→21:45)
[2021-08-13] MEDS: WARFARIN 2.5 MG TABLET PO SCH (17:49)
[2021-08-13] MEDS ORDERED: INFLUENZA VIRUS VACCINE 0.5 ML SYRINGE IM ONE (21:00)
[2021-08-13] MEDS: GABAPENTIN 600 MG TABLET PO SCH (21:44)
[2021-08-13] MEDS: ROSUVASTATIN 20 MG TABLET PO SCH (21:44)
[2021-08-14] MEDS: ACETAMINOPHEN 325 MG TABLET PO PRN (01:25)
[2021-08-14] MEDS: ONDANSETRON 4 MG/2 ML VIAL IV PRN ×3 (01:26→21:33)
[2021-08-14] MEDS: oxyCODONE/ACETAMINOPHEN 5-325 MG TABLET PO PRN ×3 (04:35→21:35)
[2021-08-14] MEDS: DILTIAZEM INJ 100 MG in SODIUM CHLORIDE 0.9% 100 ML IV SCH (04:54)
[2021-08-14] MEDS: DOFETILIDE 250 MCG CAPSULE PO SCH ×3 (04:54→21:34)
[2021-08-14] MEDS: DILTIAZEM CD 120 MG CAPSULE PO SCH ×2 (09:11→21:34)
[2021-08-14] MEDS: METOPROLOL TARTRATE 25 MG TABLET PO SCH ×2 (09:12→21:34)
[2021-08-14] MEDS: ASPIRIN EC 81 MG TABLET PO SCH (09:12)
[2021-08-14] MEDS: INSULIN LISPRO 100 UNIT/ML SUBCUT SCH ×2 (12:14→16:56)
[2021-08-14 14:01] LABS: Calcium 9.2 MG/DL (8.5-10.1); Potassium 4.2 MMOL/L (3.5-5.1)
[2021-08-14] MEDS: WARFARIN 2.5 MG TABLET PO SCH (16:56)
[2021-08-14] MEDS: GABAPENTIN 600 MG TABLET PO SCH (21:34)
[2021-08-14] MEDS: ROSUVASTATIN 20 MG TABLET PO SCH (21:34)
[2021-08-15 05:05] LABS: INR 3.7; PT Patient Result 38.2 SECS (10.5-12.0)
[2021-08-15 05:16] LABS: Calcium 8.7 MG/DL (8.5-10.1); Osmolality,Calculated 278.7 MOS/KG (273-304); Potassium 3.9 MMOL/L (3.5-5.1)
[2021-08-15 05:20] LABS: Basophils % 0.3 % (0.0-0.8); Eosinophils # 0.4 10*3/uL (0.0-0.87); Eosinophils % 4.2 % (0.00-10.9); Hematocrit 37.7 VOL% (35.7-47.0); Immature Granulocytes % 0.3 %; Immature Granulocytes Absolute 0.03 #; Lymphocytes # 3.1 10*3/uL (1.4-4.0); Lymphocytes % 35.3 % (21.3-54.2); Mean Corpuscular HGB Conc 28.9 GM/DL (32-36); Mean Corpuscular Volume 79.5 FL (87-102); Mean Platelet Volume 9.7 FL (9.6-12.0); Monocytes % 12.2 % (1.7-12.7); Neutrophils % 47.7 % (38.7-73.9); Platelet Count 389 T/CUMM (130-400); Red Blood Count 4.74 MC/CUMM (3.8-5.5); Red Cell Distribution Width 18.6 % (9.3-17.3); White Blood Count 8.8 T/CUMM (4-12)
[2021-08-15 05:21] LABS: Hemoglobin 10.9 GM/DL (12.0-16.0)
[2021-08-15 05:24] LABS: Hypochromasia Slight; Microcytosis 1+; Platelet Estimate Normal
[2021-08-15] MEDS: ONDANSETRON 4 MG/2 ML VIAL IV PRN ×2 (05:29→12:50)
[2021-08-15] MEDS: oxyCODONE/ACETAMINOPHEN 5-325 MG TABLET PO PRN ×2 (05:30→12:50)
[2021-08-15] MEDS: DILTIAZEM INJ 100 MG in SODIUM CHLORIDE 0.9% 100 ML IV SCH (06:31)
[2021-08-15] MEDS: WARFARIN 2.5 MG TABLET PO SCH (08:14)
[2021-08-15] MEDS: METOPROLOL TARTRATE 25 MG TABLET PO SCH (09:30)
[2021-08-15] MEDS: DOFETILIDE 250 MCG CAPSULE PO SCH (09:30)
[2021-08-15] MEDS: ASPIRIN EC 81 MG TABLET PO SCH (09:30)
[2021-08-15] MEDS: DILTIAZEM CD 120 MG CAPSULE PO SCH (09:30)
[2021-08-15] MEDS: INSULIN LISPRO 100 UNIT/ML SUBCUT SCH ×2 (09:42→16:35)
[2021-08-15] MEDS: ACETAMINOPHEN 325 MG TABLET PO PRN (11:24)
[2021-08-15 16:31] VITALS: BP 98/54
[2021-08-16] MEDS ORDERED: FUROSEMIDE 80 MG TABLET PO SCH (09:00)
== END 2021-08-15 17:50 | disposition home health service (06) | DRG 309 ==
LOC: EDUNIT# → EDBD → N.ED 19:05 → SUATTDRO 21:05 → N.EDINP 21:05 → N.TELEN 08-13 17:14
PROVIDERS: ADMIT Internal Medicine; ATTEND Internal Medicine

== ENCOUNTER 2021-11-02 10:26 | Observation (INO) ==
[2021-11-02] MEDS ORDERED: DILTIAZEM 100 MG VIAL.ADD IV ONE (11:09)
[2021-11-02] MEDS ORDERED: DILTIAZEM 50 MG/10 ML VIAL IV ONE (11:10)
[2021-11-02] MEDS ORDERED: DILTIAZEM 50 MG/10 ML VIAL IV STA ×2 (11:10→11:33)
[2021-11-02] MEDS ORDERED: ONDANSETRON 4 MG/2 ML VIAL IV ONE (11:11)
[2021-11-02] MEDS ORDERED: ONDANSETRON 4 MG/2 ML VIAL ONE (11:12)
[2021-11-02] MEDS ORDERED: ONDANSETRON 4 MG/2 ML VIAL IV STA (11:15)
[2021-11-02] MEDS: DILTIAZEM INJ 100 MG in SODIUM CHLORIDE 0.9% 100 ML IV SCH (11:19)
[2021-11-02 11:31] LABS: Basophils % 0.5 % (0.0-0.8); Eosinophils % 0.1 % (0.00-10.9); Hematocrit 49.8 VOL% (35.7-47.0); Hemoglobin 14.3 GM/DL (12.0-16.0); Immature Granulocytes % 0.5 %; Immature Granulocytes Absolute 0.04 #; Lymphocytes # 1.3 10*3/uL (1.4-4.0); Lymphocytes % 15.1 % (21.3-54.2); Mean Corpuscular HGB Conc 28.7 GM/DL (32-36); Mean Corpuscular Volume 73.7 FL (87-102); Mean Platelet Volume 8.7 FL (9.6-12.0); Monocytes % 10.8 % (1.7-12.7); Platelet Count 473 T/CUMM (130-400); Red Blood Count 6.76 MC/CUMM (3.8-5.5); Red Cell Distribution Width 22.5 % (9.3-17.3); White Blood Count 8.7 T/CUMM (4-12)
[2021-11-02] MEDS ORDERED: SODIUM CHLORIDE 0.9% 500 ML IV STA (11:33)
[2021-11-02 11:40] LABS: INR 1.3; PT Patient Result 14.3 SECS (10.5-12.0)
[2021-11-02] MEDS ORDERED: METOPROLOL TARTRATE 5 MG/5 ML VIAL IV STA (11:46)
[2021-11-02] MEDS ORDERED: METOPROLOL TARTRATE 5 MG/5 ML VIAL IV ONE (11:47)
[2021-11-02 12:22] LABS: Albumin 3.3 G/DL (3.4-5.0); Bilirubin,Total 0.7 MG/DL (0.20-1.00); Calcium 9.2 MG/DL (8.5-10.1); Osmolality,Calculated 279.4 MOS/KG (273-304); Total Protein 7.8 G/DL (6.4-8.2)
[2021-11-02] MEDS ORDERED: PROMETHAZINE 25 MG/1 ML VIAL IM STA ×2 (12:43→12:48)
[2021-11-02 12:55] LABS: Ovalocytes Few; Polychromasia Slight; Target Cells Slight
[2021-11-02 12:57] LABS: Hypochromia 2+; Microcytosis 3+; Platelet Estimate Normal
[2021-11-02] MEDS ORDERED: POTASSIUM CHLORIDE 20 MEQ TABLET PO ONE (12:58)
[2021-11-02] MEDS ORDERED: ACETAMINOPHEN 325 MG TABLET PO PRN (13:57)
[2021-11-02] MEDS ORDERED: DEXTROSE 50% 25 GM/50 ML SYRINGE IV PRN (13:57)
[2021-11-02] MEDS ORDERED: GLUCAGON 1 MG VIAL IM PRN (13:57)
[2021-11-02 14:45] LABS: Risk Ratio 2.02; VLDL Cholesterol 26.8 MG/DL
[2021-11-02] MEDS ORDERED: ENOXAPARIN 40 MG/0.4 ML SYRINGE SUBCUT SCH (15:00)
[2021-11-02] MEDS: PROMETHAZINE 25 MG/1 ML VIAL IM PRN (16:28)
[2021-11-02] MEDS ORDERED: INFLUENZA VIRUS VACCINE 0.5 ML SYRINGE IM ONE (17:10)
[2021-11-02] MEDS: ONDANSETRON 4 MG/2 ML VIAL IV PRN ×2 (18:14→22:25)
[2021-11-02] MEDS: INSULIN LISPRO 100 UNIT/ML SUBCUT SCH ×2 (18:15→20:12)
[2021-11-02] MEDS: METOPROLOL TARTRATE 25 MG TABLET PO SCH (20:03)
[2021-11-02] MEDS: ROSUVASTATIN 20 MG TABLET PO SCH (20:03)
[2021-11-02] MEDS: ASCORBIC ACID 500 MG TABLET PO SCH (20:03)
[2021-11-02] MEDS: DILTIAZEM CD 120 MG CAPSULE PO SCH (20:03)
[2021-11-02] MEDS: DOCUSATE SODIUM 100 MG CAPSULE PO SCH (20:03)
[2021-11-02] MEDS: METOCLOPRAMIDE 10 MG/2 ML VIAL IV PRN (20:54)
[2021-11-02] MEDS: LACTATED RINGERS 1,000 ML IV SCH (22:23)
[2021-11-03] MEDS: LACTATED RINGERS 1,000 ML IV SCH ×3 (00:33→17:41)
[2021-11-03] MEDS: PROMETHAZINE 25 MG/1 ML VIAL IM PRN ×3 (00:33→18:31)
[2021-11-03] MEDS: ONDANSETRON 4 MG/2 ML VIAL IV PRN ×4 (03:12→20:30)
[2021-11-03] MEDS: METOCLOPRAMIDE 10 MG/2 ML VIAL IV PRN (05:04)
[2021-11-03 05:23] LABS: Calcium 8.8 MG/DL (8.5-10.1); Osmolality,Calculated 277.4 MOS/KG (273-304); Potassium 2.6 MMOL/L (3.5-5.1)
[2021-11-03 05:36] LABS: Basophils % 0.3 % (0.0-0.8); Eosinophils # 0.1 10*3/uL (0.0-0.87); Eosinophils % 0.8 % (0.00-10.9); Hematocrit 40.2 VOL% (35.7-47.0); Hemoglobin 11.5 GM/DL (12.0-16.0); Immature Granulocytes % 0.3 %; Immature Granulocytes Absolute 0.03 #; Lymphocytes % 31.3 % (21.3-54.2); Mean Corpuscular HGB Conc 28.6 GM/DL (32-36); Mean Corpuscular Volume 73.9 FL (87-102); Mean Platelet Volume 8.6 FL (9.6-12.0); Monocytes % 17.3 % (1.7-12.7); Platelet Count 400 T/CUMM (130-400); Red Blood Count 5.44 MC/CUMM (3.8-5.5); White Blood Count 9.4 T/CUMM (4-12)
[2021-11-03 05:45] LABS: Band Neutrophils 1 % (0-10); Lymphocytes 33 % (20-55); Platelet Estimate Normal; Segmented Neutrophils 50 % (50-85); Total Cells Counted 100
[2021-11-03 05:46] LABS: Anisocytosis 1+
[2021-11-03] MEDS ORDERED: POTASSIUM CHLORIDE 20 MEQ TABLET PO PRN (06:49)
[2021-11-03] MEDS: INSULIN LISPRO 100 UNIT/ML SUBCUT SCH ×4 (07:57→20:28)
[2021-11-03] MEDS: METOPROLOL TARTRATE 25 MG TABLET PO SCH ×2 (09:49→20:25)
[2021-11-03] MEDS: PANTOPRAZOLE 40 MG TABLET PO SCH ×3 (09:49→20:25)
[2021-11-03] MEDS: DILTIAZEM CD 120 MG CAPSULE PO SCH ×2 (09:49→20:25)
[2021-11-03] MEDS: ASPIRIN EC 81 MG TABLET PO SCH (09:50)
[2021-11-03] MEDS: ASCORBIC ACID 500 MG TABLET PO SCH ×2 (09:50→20:24)
[2021-11-03] MEDS: POTASSIUM CHLORIDE 20 MEQ TABLET PO SCH ×3 (09:50→20:24)
[2021-11-03] MEDS: DOCUSATE SODIUM 100 MG CAPSULE PO SCH (09:51)
[2021-11-03 10:42] LABS: Amorphous Crystals,Urine Occasional /HPF (Few); Bacteria,Urine Occasional /HPF (Few); Bilirubin,Urine Negative (Negative); Blood, Urine Moderate mg/dL (Negative); Glucose,Urine (UA) >=500 mg/dL (Negative); Ketones,Urine Negative (Negative); Mucus,Urine Occasional /LPF (Occasional); Nitrite,Urine Negative (Negative); Protein,Urine 100 MG/DL; RBC,Urine 5 /HPF (0-4); Squamous Epithelial Cell,Urine Occasional /HPF (0-10); Urine Appearance Slightly Hazy (Clear); Urine Color Yellow (Yellow); Urine Specific Gravity 1.003 (1.001-1.035); Urine Urobilinogen < 2.0 EU/DL (<2.0)
[2021-11-03] MEDS ORDERED: DOCUSATE/SENNA 50-8.6 MG TABLET PO SCH (11:30)
[2021-11-03] MEDS: DILTIAZEM INJ 100 MG in SODIUM CHLORIDE 0.9% 100 ML IV SCH (12:38)
[2021-11-03] MEDS: POLYETHYLENE GLYCOL POWDER 17 GM PACK PO SCH (13:20)
[2021-11-03 13:21] LABS: Hematocrit 40.3 VOL% (35.7-47.0); Hemoglobin 11.5 GM/DL (12.0-16.0)
[2021-11-03] MEDS ORDERED: ENOXAPARIN 100 MG/ML SYRINGE SUBCUT ONE (14:10)
[2021-11-03] MEDS ORDERED: WARFARIN 2.5 MG TABLET PO SCH (14:30)
[2021-11-03] MEDS ORDERED: PROCHLORPERAZINE 5 MG TABLET PO SCH (15:00)
[2021-11-03] MEDS: PROCHLORPERAZINE 5 MG TABLET PO SCH ×2 (16:52→20:25)
[2021-11-03] MEDS: ROSUVASTATIN 20 MG TABLET PO SCH (20:24)
[2021-11-03] MEDS ORDERED: GABAPENTIN 600 MG TABLET PO SCH (21:00)
[2021-11-03] MEDS ORDERED: MORPHINE ER 15 MG TABLET PO SCH (21:00)
[2021-11-04] MEDS: LACTATED RINGERS 1,000 ML IV SCH (03:42)
[2021-11-04 05:40] LABS: INR 1.2; PT Patient Result 13.3 SECS (10.5-12.0)
[2021-11-04 06:09] LABS: Calcium 8.7 MG/DL (8.5-10.1); Osmolality,Calculated 278.3 MOS/KG (273-304); Potassium 3.7 MMOL/L (3.5-5.1)
[2021-11-04 06:18] LABS: Basophils % 0.6 % (0.0-0.8); Eosinophils # 0.2 10*3/uL (0.0-0.87); Eosinophils % 2.8 % (0.00-10.9); Hematocrit 40.1 VOL% (35.7-47.0); Hemoglobin 11.2 GM/DL (12.0-16.0); Immature Granulocytes % 0.6 %; Immature Granulocytes Absolute 0.04 #; Lymphocytes # 2.8 10*3/uL (1.4-4.0); Lymphocytes % 38.4 % (21.3-54.2); Mean Corpuscular HGB Conc 27.9 GM/DL (32-36); Mean Corpuscular Volume 75.8 FL (87-102); Mean Platelet Volume 8.8 FL (9.6-12.0); Monocytes % 16.9 % (1.7-12.7); Neutrophils % 40.7 % (38.7-73.9); Platelet Count 288 T/CUMM (130-400); Red Blood Count 5.29 MC/CUMM (3.8-5.5); Red Cell Distribution Width 22.2 % (9.3-17.3); White Blood Count 7.3 T/CUMM (4-12)
[2021-11-04 06:57] LABS: Anisocytosis 1+; Burr Cells Few; Eosinophils 1 % (0-10); Lymphocytes 42 % (20-55); Ovalocytes Few; Platelet Estimate Normal; Segmented Neutrophils 42 % (50-85); Total Cells Counted 100
[2021-11-04] MEDS: INSULIN LISPRO 100 UNIT/ML SUBCUT SCH ×2 (07:29→12:34)
[2021-11-04] MEDS ORDERED: POTASSIUM CHLORIDE 20 MEQ TABLET PO ONE (08:05)
[2021-11-04] MEDS ORDERED: MONTELUKAST 10 MG TABLET PO SCH (09:00)
[2021-11-04] MEDS ORDERED: ENOXAPARIN 100 MG/ML SYRINGE SUBCUT SCH (09:00)
[2021-11-04] MEDS ORDERED: cefTRIAXone 1,000 MG in SODIUM CHLORIDE 0.9% 100 ML IV SCH (09:30)
[2021-11-04] MEDS: ASPIRIN EC 81 MG TABLET PO SCH (09:46)
[2021-11-04] MEDS: ASCORBIC ACID 500 MG TABLET PO SCH (09:46)
[2021-11-04] MEDS: PANTOPRAZOLE 40 MG TABLET PO SCH ×2 (09:46→10:45)
[2021-11-04] MEDS: DILTIAZEM CD 120 MG CAPSULE PO SCH (09:46)
[2021-11-04] MEDS: PROCHLORPERAZINE 5 MG TABLET PO SCH (09:46)
[2021-11-04] MEDS: METOPROLOL TARTRATE 25 MG TABLET PO SCH (09:46)
[2021-11-04] MEDS: POLYETHYLENE GLYCOL POWDER 17 GM PACK PO SCH (10:45)
[2021-11-04] MEDS: DILTIAZEM INJ 100 MG in SODIUM CHLORIDE 0.9% 100 ML IV SCH (12:34)
[2021-11-04 13:02] VITALS: BP 141/53
[2021-11-05] MEDS ORDERED: WARFARIN 2.5 MG TABLET PO SCH (14:11)
== END 2021-11-04 14:07 | disposition home or self-care (01) ==
LOC: EDBD → EDUNIT# → N.EDINP 10:26 → N.ED 10:26 → SUATTDRO 12:59 → N.TELEN 15:00
PROVIDERS: ADMIT Internal Medicine; ATTEND Hospitalist

== ENCOUNTER 2021-12-20 14:59 | Inpatient (IN) ==
[2021-12-20 16:33] LABS: Albumin 2.8 G/DL (3.4-5.0); Bilirubin,Total 0.4 MG/DL (0.20-1.00); Calcium 9.1 MG/DL (8.5-10.1); Osmolality,Calculated 273.1 MOS/KG (273-304); Potassium 4.2 MMOL/L (3.5-5.1); Total Protein 7.2 G/DL (6.4-8.2)
[2021-12-20 16:43] LABS: Basophils # 0.1 10*3/uL (0.0-0.2); Basophils % 0.7 % (0.0-0.8); Eosinophils # 0.1 10*3/uL (0.0-0.87); Eosinophils % 1.6 % (0.00-10.9); Hematocrit 43.1 VOL% (35.7-47.0); Hemoglobin 11.6 GM/DL (12.0-16.0); Immature Granulocytes % 0.3 %; Immature Granulocytes Absolute 0.03 #; Lymphocytes # 2.6 10*3/uL (1.4-4.0); Lymphocytes % 29.2 % (21.3-54.2); Mean Corpuscular HGB Conc 26.9 GM/DL (32-36); Mean Corpuscular Volume 78.1 FL (87-102); Mean Platelet Volume 9.1 FL (9.6-12.0); Monocytes % 9.8 % (1.7-12.7); Neutrophils % 58.4 % (38.7-73.9); Platelet Count 354 T/CUMM (130-400); Red Blood Count 5.52 MC/CUMM (3.8-5.5); White Blood Count 8.8 T/CUMM (4-12)
[2021-12-20 16:47] LABS: Anisocytosis 1+; Hypochromia 2+
[2021-12-20 16:48] LABS: Burr Cells 1+; Elliptocytes Few; Macrocytosis Slight; Microcytosis 1+; Platelet Estimate Normal; Poikilocytosis 1+; Polychromasia 1+
[2021-12-20] MEDS ORDERED: hydrALAZINE 20 MG/1 ML VIAL IV PRN (18:03)
[2021-12-20] MEDS ORDERED: ALBUTEROL 2.5 MG/3 ML NEB RESP TX PRN (18:03)
[2021-12-20] MEDS ORDERED: GLUCAGON 1 MG VIAL IM PRN (18:03)
[2021-12-20] MEDS ORDERED: ACETAMINOPHEN 325 MG TABLET PO PRN (18:03)
[2021-12-20] MEDS ORDERED: guaiFENesin/DM ER 600-30 MG TABLET PO PRN (18:03)
[2021-12-20 18:10] LABS: Free T4 (Free Thyroxine) 1.09 NG/DL (0.76-1.46); Thyroid Stimulating Hormone 2.74 uIU/ml (0.358-3.74)
[2021-12-20] MEDS ORDERED: DEXTROSE 10% 250 ML BAG IV PRN (18:14)
[2021-12-20] MEDS ORDERED: DOCUSATE SODIUM 100 MG CAPSULE PO PRN (18:19)
[2021-12-20 19:33] LABS: INR 2.2; PT Patient Result 22.8 SECS (10.5-12.0)
[2021-12-20 19:56] LABS: Glucose,Urine (UA) Negative (Negative); Protein,Urine 100 MG/DL; Urine Appearance Cloudy (Clear); Urine Color Yellow (Yellow); Urine Specific Gravity 1.025 (1.001-1.035)
[2021-12-20 19:57] LABS: Bilirubin,Urine Negative (Negative); Blood, Urine Negative (Negative); Ketones,Urine Negative (Negative); Nitrite,Urine Positive (Negative); Urine Urobilinogen 0.2 EU/DL (<2.0)
[2021-12-20 19:58] LABS: Bacteria,Urine Many /HPF (Few); Squamous Epithelial Cell,Urine Few /HPF (0-10)
[2021-12-20 20:05] LABS: Barbiturates Screen,Urine Negative (Negative); Benzodiazepines Screen,Urine Negative (Negative); Cannabinoid Screen,Urine Negative (Negative); Opiate Screen,Urine Positive (Negative); Phencyclidine Screen,Urine Negative (Negative)
[2021-12-20] MEDS: INSULIN REGULAR 100 UNIT/ML SUBCUT SCH (22:13)
[2021-12-21] MEDS: oxyCODONE/ACETAMINOPHEN 5-325 MG TABLET PO PRN ×3 (02:17→20:39)
[2021-12-21 05:34] LABS: INR 2.2; PT Patient Result 23.1 SECS (10.5-12.0)
[2021-12-21 05:40] LABS: Calcium 8.7 MG/DL (8.5-10.1); Osmolality,Calculated 284.1 MOS/KG (273-304); Potassium 3.6 MMOL/L (3.5-5.1); Risk Ratio 2.58; VLDL Cholesterol 31.6 MG/DL
[2021-12-21 05:57] LABS: Basophils # 0.1 10*3/uL (0.0-0.2); Basophils % 0.7 % (0.0-0.8); Eosinophils # 0.2 10*3/uL (0.0-0.87); Eosinophils % 2.1 % (0.00-10.9); Hemoglobin 10.8 GM/DL (12.0-16.0); Immature Granulocytes % 0.2 %; Immature Granulocytes Absolute 0.02 #; Lymphocytes # 1.6 10*3/uL (1.4-4.0); Lymphocytes % 19.7 % (21.3-54.2); Mean Corpuscular HGB Conc 27.9 GM/DL (32-36); Mean Corpuscular Volume 75.3 FL (87-102); Mean Platelet Volume 8.8 FL (9.6-12.0); Monocytes % 11.3 % (1.7-12.7); Platelet Count 350 T/CUMM (130-400); Red Blood Count 5.14 MC/CUMM (3.8-5.5); Red Cell Distribution Width 22.2 % (9.3-17.3); White Blood Count 8.3 T/CUMM (4-12)
[2021-12-21 05:58] LABS: Hematocrit 38.7 VOL% (35.7-47.0)
[2021-12-21 06:15] LABS: Hypochromia 1+; Microcytosis 1+; Platelet Estimate Increased
[2021-12-21] MEDS: INSULIN REGULAR 100 UNIT/ML SUBCUT SCH ×4 (08:20→21:36)
[2021-12-21] MEDS ORDERED: INFLUENZA VIRUS VACCINE 0.5 ML SYRINGE IM ONE (09:00)
[2021-12-21] MEDS: PANTOPRAZOLE 40 MG TABLET PO SCH (09:17)
[2021-12-21] MEDS: SPIRONOLACTONE 25 MG TABLET PO SCH (12:37)
[2021-12-21] MEDS: ASPIRIN EC 81 MG TABLET PO SCH (12:37)
[2021-12-21] MEDS: DAPAGLIFLOZIN 10 MG TABLET PO SCH (12:37)
[2021-12-21] MEDS: FUROSEMIDE 40 MG TABLET PO SCH (12:37)
[2021-12-21] MEDS ORDERED: DILTIAZEM CD 120 MG CAPSULE PO SCH (13:30)
[2021-12-21] MEDS: ONDANSETRON 4 MG/2 ML VIAL IV PRN ×2 (16:54→20:42)
[2021-12-21] MEDS: GABAPENTIN 600 MG TABLET PO SCH (20:38)
[2021-12-21] MEDS: METOPROLOL TARTRATE 25 MG TABLET PO SCH (20:39)
[2021-12-21] MEDS: ROSUVASTATIN 20 MG TABLET PO SCH (20:39)
[2021-12-21] MEDS: DOFETILIDE 250 MCG CAPSULE PO SCH (21:36)
[2021-12-21] MEDS: METOPROLOL TARTRATE 5 MG/5 ML VIAL IV PRN (22:06)
[2021-12-22] MEDS ORDERED: METOCLOPRAMIDE 10 MG/2 ML VIAL IV ONE (00:28)
[2021-12-22] MEDS: ONDANSETRON 4 MG/2 ML VIAL IV PRN ×4 (00:37→19:28)
[2021-12-22 05:31] LABS: Basophils # 0.1 10*3/uL (0.0-0.2); Basophils % 0.5 % (0.0-0.8); Eosinophils # 0.1 10*3/uL (0.0-0.87); Eosinophils % 0.5 % (0.00-10.9); Hematocrit 43.6 VOL% (35.7-47.0); Immature Granulocytes % 0.3 %; Immature Granulocytes Absolute 0.03 #; Lymphocytes # 2.6 10*3/uL (1.4-4.0); Lymphocytes % 24.8 % (21.3-54.2); Mean Corpuscular HGB Conc 28.4 GM/DL (32-36); Mean Corpuscular Volume 75.3 FL (87-102); Mean Platelet Volume 8.8 FL (9.6-12.0); Monocytes % 9.6 % (1.7-12.7); Neutrophils % 64.3 % (38.7-73.9); Platelet Count 423 T/CUMM (130-400); Red Blood Count 5.79 MC/CUMM (3.8-5.5); Red Cell Distribution Width 22.3 % (9.3-17.3); White Blood Count 10.4 T/CUMM (4-12)
[2021-12-22 05:35] LABS: Hemoglobin 12.4 GM/DL (12.0-16.0)
[2021-12-22 05:37] LABS: Calcium 9.6 MG/DL (8.5-10.1); Osmolality,Calculated 273.8 MOS/KG (273-304); Potassium 3.8 MMOL/L (3.5-5.1)
[2021-12-22] MEDS ORDERED: cefTRIAXone 2,000 MG in SODIUM CHLORIDE 0.9% 100 ML IV ONE (08:53)
[2021-12-22 08:58] LABS: INR 1.7
[2021-12-22] MEDS: ASPIRIN EC 81 MG TABLET PO SCH (10:16)
[2021-12-22] MEDS: PANTOPRAZOLE 40 MG TABLET PO SCH (10:16)
[2021-12-22] MEDS: oxyCODONE/ACETAMINOPHEN 5-325 MG TABLET PO PRN ×2 (10:16→21:21)
[2021-12-22] MEDS: METOPROLOL TARTRATE 25 MG TABLET PO SCH ×2 (10:16→21:21)
[2021-12-22] MEDS: SPIRONOLACTONE 25 MG TABLET PO SCH (10:16)
[2021-12-22] MEDS: DAPAGLIFLOZIN 10 MG TABLET PO SCH (10:20)
[2021-12-22] MEDS: FUROSEMIDE 40 MG TABLET PO SCH (10:20)
[2021-12-22] MEDS: INSULIN REGULAR 100 UNIT/ML SUBCUT SCH ×4 (10:23→22:43)
[2021-12-22] MEDS: DOFETILIDE 250 MCG CAPSULE PO SCH ×2 (10:24→21:22)
[2021-12-22] MEDS ORDERED: PROMETHAZINE 25 MG/1 ML VIAL IM PRN (16:03)
[2021-12-22] MEDS: GABAPENTIN 600 MG TABLET PO SCH (21:21)
[2021-12-22] MEDS: ROSUVASTATIN 20 MG TABLET PO SCH (21:22)
[2021-12-23] MEDS: ONDANSETRON 4 MG/2 ML VIAL IV PRN ×3 (00:28→12:29)
[2021-12-23] MEDS: METOPROLOL TARTRATE 5 MG/5 ML VIAL IV PRN (06:17)
[2021-12-23 10:05] LABS: Calcium 9.3 MG/DL (8.5-10.1); Potassium 3.2 MMOL/L (3.5-5.1)
[2021-12-23] MEDS: SPIRONOLACTONE 25 MG TABLET PO SCH (10:17)
[2021-12-23] MEDS: ASPIRIN EC 81 MG TABLET PO SCH (10:17)
[2021-12-23] MEDS: METOPROLOL TARTRATE 25 MG TABLET PO SCH ×2 (10:17→20:52)
[2021-12-23] MEDS: FUROSEMIDE 40 MG TABLET PO SCH (10:17)
[2021-12-23] MEDS: DAPAGLIFLOZIN 10 MG TABLET PO SCH (10:17)
[2021-12-23] MEDS: PANTOPRAZOLE 40 MG TABLET PO SCH (10:17)
[2021-12-23] MEDS: METOCLOPRAMIDE 10 MG/2 ML VIAL IV PRN ×2 (10:18→16:28)
[2021-12-23] MEDS: cefTRIAXone 2,000 MG in SODIUM CHLORIDE 0.9% 100 ML IV SCH (10:18)
[2021-12-23] MEDS ORDERED: POTASSIUM CHLORIDE 20 MEQ TABLET PO ONE (10:28)
[2021-12-23] MEDS: INSULIN REGULAR 100 UNIT/ML SUBCUT SCH ×4 (10:44→22:02)
[2021-12-23] MEDS: oxyCODONE/ACETAMINOPHEN 5-325 MG TABLET PO PRN ×2 (12:29→20:51)
[2021-12-23] MEDS: DOFETILIDE 250 MCG CAPSULE PO SCH ×2 (15:33→20:55)
[2021-12-23] MEDS: SODIUM CHLORIDE 0.9% 1,000 ML IV SCH (16:28)
[2021-12-23] MEDS: ROSUVASTATIN 20 MG TABLET PO SCH (20:52)
[2021-12-23] MEDS: GABAPENTIN 600 MG TABLET PO SCH (20:52)
[2021-12-24] MEDS: oxyCODONE/ACETAMINOPHEN 5-325 MG TABLET PO PRN ×2 (04:34→11:58)
[2021-12-24 05:29] LABS: Calcium 8.5 MG/DL (8.5-10.1); Osmolality,Calculated 277.5 MOS/KG (273-304); Potassium 3.8 MMOL/L (3.5-5.1)
[2021-12-24 06:02] LABS: Basophils % 0.6 % (0.0-0.8); Eosinophils # 0.2 10*3/uL (0.0-0.87); Eosinophils % 3.2 % (0.00-10.9); Hematocrit 31.2 VOL% (35.7-47.0); Immature Granulocytes % 0.2 %; Immature Granulocytes Absolute 0.01 #; Lymphocytes # 1.6 10*3/uL (1.4-4.0); Lymphocytes % 31.5 % (21.3-54.2); Mean Corpuscular HGB Conc 28.8 GM/DL (32-36); Mean Corpuscular Volume 74.1 FL (87-102); Mean Platelet Volume 9.2 FL (9.6-12.0); Monocytes % 12.7 % (1.7-12.7); Neutrophils % 51.8 % (38.7-73.9); Red Cell Distribution Width 21.1 % (9.3-17.3)
[2021-12-24 06:03] LABS: Platelet Count 130 T/CUMM (130-400); Red Blood Count 4.21 MC/CUMM (3.8-5.5)
[2021-12-24 08:43] LABS: INR 1.4; PT Patient Result 15.2 SECS (10.5-12.0)
[2021-12-24] MEDS: DAPAGLIFLOZIN 10 MG TABLET PO SCH (08:53)
[2021-12-24] MEDS: PANTOPRAZOLE 40 MG TABLET PO SCH (08:54)
[2021-12-24] MEDS: SPIRONOLACTONE 25 MG TABLET PO SCH (08:54)
[2021-12-24] MEDS: INSULIN REGULAR 100 UNIT/ML SUBCUT SCH ×2 (08:54→11:03)
[2021-12-24] MEDS: ASPIRIN EC 81 MG TABLET PO SCH (08:54)
[2021-12-24] MEDS: FUROSEMIDE 40 MG TABLET PO SCH (08:54)
[2021-12-24] MEDS: METOPROLOL TARTRATE 25 MG TABLET PO SCH (08:54)
[2021-12-24] MEDS: DOFETILIDE 250 MCG CAPSULE PO SCH (08:57)
[2021-12-24] MEDS: cefTRIAXone 2,000 MG in SODIUM CHLORIDE 0.9% 100 ML IV SCH (10:24)
[2021-12-24 10:32] LABS: Hematocrit 36.8 VOL% (35.7-47.0); Hemoglobin 10.3 GM/DL (12.0-16.0)
[2021-12-24 12:42] VITALS: BP 133/85
[2021-12-24] MEDS: SODIUM CHLORIDE 0.9% 1,000 ML IV SCH (13:01)
== END 2021-12-24 12:51 | disposition home or self-care (01) | DRG 309 ==
LOC: N.ED 14:59 → SUATTDRO 19:33 → N.TELES 19:33
PROVIDERS: ADMIT Emergency Medicine; ATTEND Internal Medicine